=== PATIENT | male | born 1975 | race Caucasian/White ===

== ENCOUNTER 2019-09-11 16:53 | Emergency (ER) | payer MEDICARE, MEDICAID, SELFPAY ==
--- NOTE | ~2019-09-11 | XR_ITS ---
EXAMINATION: XR chest 2V EXAM DATE: 09/11/2019 18:19 INDICATION: Cough for 8 days. COPD. TECHNIQUE: Frontal and lateral projections of the chest obtained and reviewed. Comparison is made to prior examination from 04/05/2006. FINDINGS: There is moderate amount of bilateral perihilar distribution reticulonodular airspace disea se without dense confluent consolidation. Probably acute infection, clinical correlation. There is mo derate hyperinflation with narrow cardiac silhouette. There is no pneumothorax suspected. There are n o pleural effusions. There are no osseous abnormalities identified. IMPRESSION: Moderate bilateral perihilar reticulonodular opacities, probably infection. Reviewed, dictated and finalized at location [facility] IMPRESSION: Moderate bilateral perihilar reticulonodular opacities, probably in fection.
[2019-09-11 17:34] VITALS: BP 125/68; PULSE 98; RESP 20; TEMP 36.6; O2SAT 93
--- NOTE | 2019-09-11 17:57 | ED.URI ---
HPI - URI/Sore Throat General Chief Complaint: Upper Respiratory Infection Stated Complaint: cough/chest congestion Time Seen by Provider: 09/11/19 17:58 Source: patient Mode of arrival: ambulatory Limitations: no limitations History of Present Illness HPI Narrative: Christian Bella is a 44-year-old with history of COPD GERD who comes to [facility] care with COPD exacerbation. Patient is coughing, continues to smoke, wheezing Related Data Home Medications Medication Instructions Recorded Confirmed famotidine 40 mg tablet 40 mg PO BID tablet 05/19/19 albuterol sulfate 2.5 mg INHALATION Q4-6H PRN 05/22/19 albuterol sulfate 90 mcg/actuation 1 puff INHALATION Q4H PRN 05/22/19 aerosol inhaler fluticasone 250 mcg-salmeterol 50 1 inhalation INHALATION BID 05/22/19 mcg/dose blistr powdr for inhalation fluticasone furoate 100 1 inhalation INHALATION Q24H 05/22/19 mcg-vilanterol 25 mcg/dose inhalation powder hyoscyamine sulfate 0.375 mg 0.375 mg PO Q12H 05/22/19 tablet,extended release,12 hr ibuprofen 600 mg tablet 600 mg PO TID 05/22/19 mometasone 50 mcg/actuation nasal 2 spray NASAL DAILY 05/22/19 spray montelukast 10 mg tablet 10 mg PO DAILY 05/22/19 omeprazole 40 mg capsule,delayed 40 mg PO DAILY 05/22/19 release trazodone 150 mg tablet 150 mg PO DAILY tablet 05/22/19 fluticasone furoate-vilanterol INHALATION 09/11/19 [Breo Ellipta] trazodone 09/11/19 Allergies Allergy/AdvReac Type Severity Reaction Status Date / Time pseudoephedrine AdvReac Severe HYPERACTIVI Verified 09/11/19 17:40 TY Review of Systems Review of Systems: Narrative: CONSTITUTIONAL: Denies fever, chills, sweats. EYES: Denies visual changes, redness, discharge. ENT: Denies rhinorrhea, congestion, sore throat, otalgia. CARDIOVASCULAR: Denies chest pain, palpitations, edema. RESPIRATORY: Has dyspnea, severe wheezing, deep cough GASTROINTESTINAL: Denies abdominal pain, nausea, vomiting, diarrhea. GENITOURINARY: Denies dysuria, hematuria, abnormal discharge SKIN: Denies rash or itching. NEUROLOGIC: Denies numbness, or focal weakness. PSYCHIATRIC: Denies anxiety or depression. [facility] Family History Family History Mother Family history of transient ischemic attacks Family history of lupus erythematosus Patient's mother is Sibling Asthma Father Patient's father is in good health Other Diabetes mellitus Family history of chronic obstructive pulmonary disease Family history of malignant neoplasm of breast in first degree relative Hypertension Malignant neoplasm of prostate Social History Social History Smoking status: Smoker, status unknown Alcohol intake: current Substance use type: marijuana Comments At time of signature, I agree with nursing past medical, surgical, social and family history. There is no relevant family history pertinent to the presenting complaint. Exam Narrative: Exam Narrative: My gENERAL: This is a well-nourished, well-developed patient, in moderate distress. HEAD: normocephalic, atraumatic. EYES: Sclera clear/white. Vision is grossly intact. EARS: External ears normal, Hearing grossly intact. NOSE: External nose normal with no obvious nasal discharge, nares without redness, no rhinorrhea. THROAT: Mucous membranes moist, posterior pharynx clear. NECK: Neck supple, non-tender CARDIOVASCULAR: Tachycardic rate and rhythm without murmurs, gallops, or rubs. RESPIRATORY: Greatly diminished to auscultation. Breath sounds equal bilaterally. wheezes in all osorio no rales, some rhonchi. GASTROINTESTINAL: Abdomen soft, non-tender, SKIN: warm, intact with no suspicious lesions or rash, good texture and turgor. NEURO: awake, alert, and oriented to person, place and time. There were no obvious focal neurologic abnormalities. Steady gait EXTREMITIES: No
--- NOTE | 2019-09-11 18:38 | PC.NURSE ---
Addendum entered by Christine Martin RN 09/22/19 10:12: 09/11/2019- Atrovent and Albuterol provided to patient. Medications were not able to scan. Original Note: Prednisone 60 mg given to patient--scanned medications and patient multiple times, but would not update in the system.
--- NOTE | 2019-09-11 19:14 | PC.NURSE ---
Pt reported that he felt slight improvement after the breathing treatment.
== END 2019-09-11 18:59 | disposition home or self-care (01) ==
PROVIDERS: Emergency Provider Nurse Practitioner
DX: J18.9 Pneumonia, unspecified organism (principal); J41.1 Mucopurulent chronic bronchitis; K21.9 Gastro-esophageal reflux disease without esophagitis; F17.200 Nicotine dependence, unspecified, uncomplicated
CPT/HCPCS: 71046; 99213; G0463

== ENCOUNTER 2020-12-31 08:38 | Outpatient (CLI) | payer MEDICARE, MEDICAID, SELFPAY ==
[2020-12-31 09:11] LABS: Alanine Aminotransferase 19 U/L (4-50); Albumin Level 4.3 g/dL (3.5-5.1); Alkaline Phosphatase 55 U/L (38-126); Anion Gap 5 mmol/L (8-16); Aspartate Amino Transferase 31 U/L (17-59); Bilirubin,Total 0.3 mg/dL (0.2-1.3); Blood Urea Nitrogen 8 mg/dL (9-20); Calcium 9.3 mg/dL (8.4-10.2); Carbon Dioxide 27 mmol/L (22-30); Chloride 110 mmol/L (98-107); Cholesterol 142 mg/dL (0-200); Estimated Glomerular Filt Rate > 60; Glucose 101 mg/dL (75-110); HDL Direct 44 mg/dL; Potassium 4.2 mmol/L (3.4-5.0); Sodium 142 mmol/L (137-145); Triglycerides 111 mg/dL (<150)
[2020-12-31 09:22] LABS: LDL Cholesterol Direct 67 mg/dL
== END 2020-12-31 08:39 | disposition home or self-care (01) ==
PROVIDERS: PCP Internal Medicine; Visit Provider Internal Medicine
DX: Z13.6 Encounter for screening for cardiovascular disorders (principal); Z79.899 Other long term (current) drug therapy; Z13.220 Encounter for screening for lipoid disorders
CPT/HCPCS: 36415; 80053; 80061

== ENCOUNTER 2022-03-02 13:35 | Emergency (ER) | payer MEDICARE, MEDICAID, SELFPAY ==
[2022-03-02 13:48] VITALS: RESP 28
[2022-03-02] MEDS: SODIUM CHLORIDE 0.9% IV 1,000 ML 999 ML IV CONT (13:50)
[2022-03-02 13:55] VITALS: BP 143/78; PULSE 94; RESP 20; O2SAT 100
--- NOTE | 2022-03-02 13:59 | ECG_ITS ---
Measurements Intervals [place] Rate: 57 P: 44 TN: 138 QRS: 50 QRSD: 95 T: 52 QT: 437 QTc: 428 Interpretive Statements SINUS RHYTHM WITH SINUS ARRHYTHMIA POSSIBLE SEPTAL MYOCARDIAL INFARCTION [40+ ms Q WAVE IN V1/V2], OF INDETERMINATE AGE NONSPECIFIC ST ABNORMALITY ABNORMAL ECG Electronically Signed On 03-03-2022 9:56:30 CDT by Davy Ricks M.D.
--- NOTE | 2022-03-02 14:01 | ED.WEAKNESS ---
HPI - Weakness General Chief complaint: Weakness Stated complaint: Shortness of Breath Time Seen by Provider: 03/02/22 13:38 Source: patient, family (Mom and Girlfriend), RN notes reviewed and old records reviewed Mode of arrival: ambulatory Limitations: no limitations History of Present Illness HPI Narrative: 46-year-old male presents to the [facility] with complaints of severe diaphoresis, shortness of breath, generalized weakness, blurry vision that started 20 minutes prior to arrival. Patient denies any drug use. Patient's mom states that he was sitting in the shade smoking a cigarette and drinking monsters. Patient reports 30 minutes prior to arrival he was feeling fine. Developed a sudden onset of shortness of breath, generalized weakness, diaphoretic and family rushed him to the [facility]. On arrival patient was unable to stand independently. Complaining of blurry vision. Patient is blind in his right eye. Patient extremely diaphoretic. Denies chest pain or abdominal pain Onset (ago): minute(s) (20) Related Data Allergies Allergy/AdvReac Type Severity Reaction Status Date / Time pseudoephedrine AdvReac Severe HYPERACTIVI Verified 10/16/21 13:10 TY Review of Systems Review of Systems: All systems reviewed & are unremarkable except as noted in HPI and below Constitutional: Constitutional: Reports as per HPI, Reports no additional constitutional complaints, Denies chills, Denies fever(s) and Reports weakness Eyes: Eyes: Reports no additional eye complaints ENT: Reports system reviewed and no additional complaints, except as documented Cardiovascular: Cardiovascular: Reports no additional cardiovascular complaints Respiratory: Respiratory: Reports no additional respiratory complaints Gastrointestinal: Gastrointestinal: Reports no additional gastrointestinal complaints Musculoskeletal: Musculoskeletal: Reports no additional musculoskeletal complaints Integumentary/Breasts: Skin/Breast: Reports system reviewed and no additional complaints, except as docu Neurologic: Reports system reviewed and no additional complaints, except as documented Psychiatric: Psychiatric: Reports no additional psychiatric complaints Allergic/Immunologic: Allergic/Immunologic: Reports no additional allergic/immunologic complaints [facility] Past Medical History Medical History (Updated 03/02/22 @ 20:38 by Lea Ferguson APRN) Anxiety Dominguez's esophagus with dysplasia Bilateral knee pain Bipolar disorder, unspecified Cannabis dependence, uncomplicated Gastroesophageal reflux disease History of traumatic brain injury Nicotine dependence, unspecified, uncomplicated Retinal detachment Screening for lipid disorders Vision changes Blind in right eye Family History Family History Mother Family history of transient ischemic attacks Family history of lupus erythematosus Patient's mother is Sibling Asthma Father Patient's father is in good health Other Diabetes mellitus Family history of chronic obstructive pulmonary disease Family history of malignant neoplasm of breast in first degree relative Hypertension Malignant neoplasm of prostate Social History Social History Smoking packs per day: 1 Smoking cigarettes per day: 20.0 Years smoked: 25 Smoking pack-years: 25.00 Smoking status: Current every day smoker Tobacco type: cigarettes Second hand tobacco smoke exposure: Yes Alcohol intake: current Alcohol use details: social Substance use: current Substance use type: marijuana Comments At the time of my signature, I reviewed and agree with the nursing past medical, surgical, social, and family history. There is no relevant family history pertinent to the patient complaint. Exam Const: General: alert, diaphoretic and ill appearing acutely and chronically Nutritional Appear
--- NOTE | 2022-03-02 14:20 | ECG_ITS ---
Measurements Intervals [place] Rate: 64 P: 47 NV: 136 QRS: 49 QRSD: 95 T: 57 QT: 411 QTc: 425 Interpretive Statements SINUS RHYTHM WITH SINUS ARRHYTHMIA NORMAL ECG Electronically Signed On 03-03-2022 9:55:57 CDT by Davy Ricks M.D.
[2022-03-09 12:01] LABS: Glucose Point of Care 79 mg/dl (65-105)
== END 2022-03-02 14:00 | disposition short-term general hospital (02) ==
PROVIDERS: Emergency Provider Nurse Practitioner
DX: R53.1 Weakness (principal); R61 Generalized hyperhidrosis; R94.31 Abnormal electrocardiogram [ECG] [EKG]; F17.210 Nicotine dependence, cigarettes, uncomplicated; K22.719 Barrett's esophagus with dysplasia, unspecified; K21.9 Gastro-esophageal reflux disease without esophagitis; Z87.820 Personal history of traumatic brain injury
CPT/HCPCS: 82948; 93005; 99215; G0463; J7030

== ENCOUNTER 2022-06-15 01:26 | Day surgery (SDC) | payer MEDICARE, MEDICAID, SELFPAY ==
[2022-06-14 10:59] VITALS: BMI 22.4
[2022-06-15 12:45] VITALS: BP 118/88; PULSE 64; RESP 16; TEMP 36.3; O2SAT 100; BMI 21.6
[2022-06-15] MEDS: LACTATED RINGERS 1,000 ML 150 ML IV CONT (13:04)
--- NOTE | 2022-06-15 13:15 | PM.HPGS ---
History of Present Illness History of Present Illness Consent: Risks, benefits, and alternatives have been discussed and questions answered. Patient agrees to proceed with procedure. Chief complaint: barretts esophagus Narrative: Christian Bella is a 46 year old male Presents for EGD. Patient apparently has a history of acid reflux disease. EGD 1 and half years ago revealed that he had Dominguez's esophagus. Apparently for this reason he was referred back for screening endoscopy. Patient does report occasional heartburn. He does take omeprazole 40mg p.o. daily. Patient denies any bleeding. He denies any weight loss or dysphagia. Patient's past history is significant for colon polyps. Most recent colonoscopy the same time of EGD 1-1/2 years ago. Additionally patient has been treated for bipolar illness. Review of Systems Review of Systems: Review of systems noncontributory. [facility] Past Medical History Medical History Anxiety Dominguez's esophagus with dysplasia Bilateral knee pain Bipolar disorder, unspecified Cannabis dependence, uncomplicated Gastroesophageal reflux disease History of traumatic brain injury Nicotine dependence, unspecified, uncomplicated Retinal detachment Screening for lipid disorders Vision changes Blind in right eye Family History Family History Mother Family history of transient ischemic attacks Family history of lupus erythematosus Patient's mother is Sibling Asthma Father Patient's father is in good health Other Diabetes mellitus Family history of chronic obstructive pulmonary disease Family history of malignant neoplasm of breast in first degree relative Hypertension Malignant neoplasm of prostate Social History Social History (Updated 06/12/22 @ 10:11 by Diandra Brown MA) Smoking packs per day: 1 Smoking cigarettes per day: 20.0 Years smoked: 20 Smoking pack-years: 20.00 Smoking status: Current every day smoker Tobacco type: cigarettes Second hand tobacco smoke exposure: Yes Alcohol intake: current Drinks per week: 10 Alcohol use details: social Substance use: current Substance use type: marijuana Other substance usage details: daily Lack of Transportation: No Lack of Food: Sometimes True Current Housing: I Have Housing Concerned About Future Housing: No Difficulty Paying Gas/Electric Bills: YES Difficulty Paying for Meds: No Currently Unemployed: Decline to Answer Education: Grade School Difficulty w/ Childcare or Family Care: No Living arrangements: with family Spiritual care concerns: No Meds Home Medications and Allergies Home Medications Medication Instructions Recorded Confirmed Type albuterol sulfate 2.5 mg/3 mL 2.5 mg (3 mL) inhalation Q4H #180 03/29/20 06/14/22 Rx (0.083 %) solution for nebulization mL albuterol sulfate 90 mcg/actuation 1 inh inhalation Q6H PRN shortness 10/16/21 06/14/22 Rx aerosol inhaler (Ventolin HFA) of breath or wheezing #8.5 grams fluticasone propionate 50 2 spray intranasal DAILY #18.2 mL 10/16/21 06/14/22 Rx mcg/actuation nasal spray,suspension (Flonase Allergy Relief) montelukast 10 mg tablet 10 mg PO DAILY #30 tabs 10/16/21 06/14/22 Rx (Singulair) omeprazole 40 mg capsule,delayed 40 mg PO DAILY #30 caps 10/16/21 06/14/22 Rx release triamcinolone acetonide 0.1 % 1 applic topical BID #453.6 grams 10/16/21 06/14/22 Rx topical cream fluticasone furoate 100 1 inh inhalation Q24H #60 ea 11/06/21 06/14/22 Rx mcg-vilanterol 25 mcg/dose inhalation powder (Breo Ellipta) ibuprofen 600 mg tablet See Rx Instructions .Route 11/17/21 06/14/22 Rx .COMPLEX #90 ea gabapentin 300 mg capsule 600 mg PO DAILY #60 caps 03/19/22 06/14/22 Rx alprazolam 0.5 mg tablet 0.5 mg PO BID PRN anxiety #30 tabs 03/26/22 06/14/22 Rx quetiapine
[2022-06-15 13:39] VITALS: BP 119/71; PULSE 70; RESP 16; O2SAT 99
[2022-06-15 13:49] VITALS: BP 115/84; PULSE 69; RESP 18; O2SAT 96
[2022-06-15 13:59] VITALS: BP 119/87; PULSE 60; RESP 18; O2SAT 97
== END 2022-06-15 14:07 | disposition home or self-care (01) ==
PROVIDERS: PCP Internal Medicine; Visit Provider Internal Medicine Gastroenterology
PROC: 0DJ08ZZ Inspection of Upper Intestinal Tract, Via Natural or Artificial Opening Endoscopic (ICD-10-PCS; CPT 43235; principal; 2022-06-15 13:45)
DX: K22.70 Barrett's esophagus without dysplasia (principal); K21.9 Gastro-esophageal reflux disease without esophagitis; Z86.010 Personal history of colon polyps; F31.9 Bipolar disorder, unspecified; F17.210 Nicotine dependence, cigarettes, uncomplicated
CPT/HCPCS: 43239; 88305; J2704; J7120

== ENCOUNTER 2022-07-18 10:00 | Emergency (ER) | payer MEDICARE, MEDICAID, SELFPAY ==
[2022-07-18 10:15] VITALS: BP 112/74; PULSE 62; RESP 16; TEMP 37; O2SAT 100
--- NOTE | 2022-07-18 10:29 | ED.WOUNDLAC ---
HPI - Wound/Laceration General Stated Complaint: Lacation To Left Foot Time Seen by Provider: 07/18/22 10:20 Source: patient Mode of arrival: ambulatory Limitations: no limitations History of Present Illness HPI narrative: Christian is a 46-year-old male patient presenting to the clinic today with complaints a laceration to the bottom of his left foot. He reports that he caught his left foot on the bed frame. This caused a skin avulsion and laceration to the lateral arch of his foot. Bleeding controlled and tetanus is not up-to-date. Related Data Home Medications Medication Instructions Recorded Confirmed quetiapine 300 mg tablet mg 07/18/22 Allergies Allergy/AdvReac Type Severity Reaction Status Date / Time pseudoephedrine AdvReac Severe HYPERACTIVI Verified 07/18/22 10:25 TY Review of Systems Review of Systems: Pertinent positives per HPI. Patient denies any fever, chills, rash, headache, visual changes, dizziness, cough, runny nose, sore throat, shortness of breath, chest pain, palpitations, nausea, vomiting, diarrhea, constipation, abdominal pain, or any urinary issues. [facility] Past Medical History Medical History Anxiety Dominguez's esophagus with dysplasia Bilateral knee pain Bipolar disorder, unspecified Cannabis dependence, uncomplicated Gastroesophageal reflux disease History of traumatic brain injury Nicotine dependence, unspecified, uncomplicated Retinal detachment Screening for lipid disorders Vision changes Blind in right eye Family History Family History Mother Family history of transient ischemic attacks Family history of lupus erythematosus Patient's mother is Sibling Asthma Father Patient's father is in good health Other Diabetes mellitus Family history of chronic obstructive pulmonary disease Family history of malignant neoplasm of breast in first degree relative Hypertension Malignant neoplasm of prostate Social History Social History Smoking packs per day: 1 Smoking cigarettes per day: 20.0 Years smoked: 20 Smoking pack-years: 20.00 Smoking status: Current every day smoker Tobacco type: cigarettes Second hand tobacco smoke exposure: Yes Alcohol intake: current Drinks per week: 10 Alcohol use details: social Substance use: current Substance use type: marijuana Other substance usage details: daily Lack of Transportation: No Lack of Food: Sometimes True Current Housing: I Have Housing Concerned About Future Housing: No Difficulty Paying Gas/Electric Bills: YES Difficulty Paying for Meds: No Currently Unemployed: Decline to Answer Education: Grade School Difficulty w/ Childcare or Family Care: No Spiritual care concerns: No Comments At the time of my signature, I reviewed and agree with the nursing past medical, surgical, social, and family history. There is no relevant family history pertinent to the patient complaint. Exam Narrative: General: Well-developed, well nourished, in no apparent distress Head: Normocephalic, atraumatic. Cardio: Regular rate and rhythm, s1 and s2 normal, no murmur appreciated. Resp: Clear to auscultation bilaterally, no rhonchi, rales, wheezing or rubs. Integumentary: [place], warm, and dry, full avulsion of skin with superficial laceration measuring 0.5 cm by 3 cm. Wound cleansed with primiderm in the clinic today however there is nothing repairable Course Course Emergency Course: Portions of this record may have been created with voice recognition software. Level of Care: [facility] Visit Vital Signs Vital signs: Vital Signs Temperature 37.0 C 07/18/22 10:15 Pulse Rate 62 07/18/22 10:15 Respiratory Rate 16 07/18/22 10:15 Blood Pressure 112/74 07/18/22 10:15 Pulse Oximet
[2022-07-18] MEDS: TETANUS,DIPHTHERIA,AC PERTUSSIS ADULT (0.5 ML) BOOSTRIX IM (10:37)
== END 2022-07-18 11:00 | disposition home or self-care (01) ==
PROVIDERS: Emergency Provider Nurse Practitioner Family; PCP Internal Medicine
DX: S91.312A Laceration without foreign body, left foot, initial encounter (principal); W22.03XA Walked into furniture, initial encounter; Z23 Encounter for immunization; F17.210 Nicotine dependence, cigarettes, uncomplicated; F12.90 Cannabis use, unspecified, uncomplicated; K22.70 Barrett's esophagus without dysplasia; K21.9 Gastro-esophageal reflux disease without esophagitis; Z87.820 Personal history of traumatic brain injury; F31.9 Bipolar disorder, unspecified; F41.9 Anxiety disorder, unspecified
CPT/HCPCS: 90471; 90715; 99213; G0463

== ENCOUNTER 2022-12-17 09:25 | Emergency (ER) | payer MEDICARE, MEDICAID, SELFPAY ==
[2022-12-17 09:30] VITALS: BP 140/99; PULSE 76; RESP 20; TEMP 36.5; O2SAT 100
--- NOTE | 2022-12-17 09:50 | ED.EYEPROB ---
HPI - Eye Problem General Chief complaint: Eye Problems Stated complaint: Right Eye Problem History of Present Illness HPI Narrative: Patient presents with chronic problems to his right eye. 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 Patient states he has had this bump under his right eyelid for the past month. Patient reports a history of retinal detachment in his right eye and has total vision loss. Patient states Related Data Home Medications Medication Instructions Recorded Confirmed albuterol sulfate 2.5 mg/3 mL 2.5 mg inhalation Q4H PRN 08/30/22 12/17/22 (0.083 %) solution for nebulization Shortness Of Breath Or Wheezing Allergies Allergy/AdvReac Type Severity Reaction Status Date / Time pseudoephedrine AdvReac Severe HYPERACTIVI Verified 12/17/22 09:46 TY Review of Systems Review of Systems: CONSTITUTIONAL: Denies fever, chills, or sweats. EYES: Denies visual changes, redness, or discharge. ENT: Denies rhinorrhea, congestion, sore throat, or otalgia. CARDIOVASCULAR: Denies chest pain, palpitations, or edema. RESPIRATORY: Denies cough or dyspnea. GASTROINTESTINAL: Denies abdominal pain, nausea, vomiting, or diarrhea. GENITOURINARY: Denies dysuria or hematuria. SKIN: Denies rash or itching. MUSCULOSKELETAL: Denies back pain, joint pain, or myalgia. NEUROLOGIC: Denies headache, numbness, or weakness. PSYCHIATRIC: Denies anxiety or depression. [facility] Past Medical History Medical History Anxiety Dominguez's esophagus with dysplasia Bilateral knee pain Bipolar disorder, unspecified Cannabis dependence, uncomplicated Gastroesophageal reflux disease History of traumatic brain injury Nicotine dependence, unspecified, uncomplicated Retinal detachment Screening for lipid disorders Vision changes Blind in right eye Family History Family History Mother Family history of transient ischemic attacks Family history of lupus erythematosus Patient's mother is Sibling Asthma Father Patient's father is in good health Other Diabetes mellitus Family history of chronic obstructive pulmonary disease Family history of malignant neoplasm of breast in first degree relative Hypertension Malignant neoplasm of prostate Social History Social History Smoking packs per day: 1 Smoking cigarettes per day: 20.0 Years smoked: 20 Smoking pack-years: 20.00 Smoking status: Current every day smoker Tobacco type: cigarettes Second hand tobacco smoke exposure: Yes Alcohol intake: current Drinks per week: 10 Alcohol use details: social Substance use: current Substance use type: marijuana Other substance usage details: daily Lack of Transportation: No Lack of Food: Sometimes True Current Housing: I Have Housing Concerned About Future Housing: No Difficulty Paying Gas/Electric Bills: YES Difficulty Paying for Meds: No Currently Unemployed: Decline to Answer Education: Grade School Difficulty w/ Childcare or Family Care: No Living arrangements: with family Spiritual care concerns: No Comments At time of signature, agree with nursing past medical, surgical, social and family history. There is no relevant family history pertinent to the presenting complaint Exam Narrative: GENERAL: Well-appearing, well-nourished, and in no acute distress. HEAD: Normocephalic, atraumatic. EYES: PERRLA and EOMI. ENT: Nares clear, no rhinorrhea or epistaxis. Mucous membranes moist. NECK: Supple. CHEST: Clear to auscultation. No respiratory distress. HEART: Regular rate and rhythm. No murmur heard. Normal peripheral pulses. ABDOMEN: Soft, nontender, nondistended, normal active bowel sounds. EXTREMITIES: Normal range of motion. No edema. SKIN: Warm, dry, no rash. NEURO: No focal deficits.
== END 2022-12-17 10:35 | disposition left against medical advice (07) ==
PROVIDERS: Emergency Provider Nurse Practitioner Family; PCP Family Medicine
DX: H57.9 Unspecified disorder of eye and adnexa (principal); H18.9 Unspecified disorder of cornea; F17.210 Nicotine dependence, cigarettes, uncomplicated; F12.90 Cannabis use, unspecified, uncomplicated; K22.70 Barrett's esophagus without dysplasia; K21.9 Gastro-esophageal reflux disease without esophagitis; H54.40 Blindness, one eye, unspecified eye
CPT/HCPCS: 99212; G0463

== ENCOUNTER 2024-11-04 12:07 | Outpatient (CLI) | payer MEDICARE, MEDICAID, SELFPAY ==
--- OUTSIDE RECORDS SUMMARY | 2024-11-04 13:18 | XMS_ITS | Encounter Summary ---
Author Organization [facility] Address [address] [place] [place] [address] Phone Care Team Providers Care Animal Hospital Clerk Name Role Phone Nael, Serafin Leticia PEÑA Primary Care Provider [phone] Encounter Details Date Type Department Care Team (Latest Contact Info) Description 10/31/2023 Transcribe Orders [facility] [address] [place] [address] Ralph Chávez MD [address] [place] [id number] Encounter for screening for malignant neoplasm of prostate (Primary Dx); Depression, unspecified depression type; Mild intermittent asthma without complication; Personal history of traumatic brain injury; Nicotine dependence, uncomplicated, unspecified nicotine product type; Irritable bowel syndrome with diarrhea; Right hip pain; Other chronic pain Social History Tobacco Use Types Packs/Day Years Used Date Smoking Tobacco: Every Day Cigarettes 1 40 Smokeless Tobacco: Never Alcohol Use Standard Drinks/Week Comments Yes 0 (1 standard drink = 0.6 oz pur e alcohol) Beer- drinks everyother week Sexually Active Control Partners Comments Yes Sex and Gender Information Value Date Recorded Sex Assigned at Not on file Legal Sex Male 11:58 PM CDT Gender Identity Not on file Sexual Orientation Not on file documented as of this encounter Plan of Treatment Not on file documented as of this encounter Results * LIPID PANEL (11/11/2023 12:30 PM CDT) CHOLESTEROL 126 <200 mg/dL 11/11/2023 1:24 PM CDT [facility] TRIGLYCERIDES 52 <150 mg/dL 11/11/2023 1:24 PM CDT [facility] HDL CHOLESTEROL 57 >40 mg/dL 1:24 PM CDT [facility] LDL 59 <130 mg/dL 11/11/2023 1:24 PM CDT [facility] VLDL 10 10 - 50 mg/dL 11/11/2023 1:24 PM CDT [facility] CHOL/HDL RATIO 2.2 0.0 - 4.4 11/11/2023 1:24 PM CDT [facility] NON-HDL CHOLESTEROL 69 <130 mg/dL 11/11/2023 1:24 PM CDT [facility] IS THE PATIENT REQUIRED TO BE FASTING? Yes 11/11/2023 1:24 PM CDT [facility] HAS THE PATIENT BEEN FASTING? Yes 11/11/2023 1:24 PM CDT [facility] Blood VENOUS STRUCTURE / Unknown Venipuncture / Unknown 11/11/2023 12:30 PM CDT 11/11/2023 12:56 PM CDT us Ralph Chávez MD CHEMISTRY ORDERABLES Final Resu lt [facility] [address] [place] [address] * PSA SCREEN (11/11/2023 12:30 PM CDT) PSA SCREEN, TOTAL 0.46 <4.00 ng/mL 11/11/2023 1:42 PM CDT [facility] Blood VENOUS STRUCTURE / Unknown Venipuncture / Unknown 11/11/2023 12:30 PM CDT 11/11/2023 12:57 PM CDT Narrative [facility] - 11/11/2023 1:42 PM CDT The ALINITY Total PSA assay is a Chemiluminescent Microparticle Immunoassay (CMIA) for the quantitative determination of total PSA (both free PSA and PSA complexed to [id number]) in human serum. Total PSA values obtained with different assay methods, including Lewis PSA assays, cannot be used interchangeably. us Ralph Chávez MD CHEMISTRY ORDERABLES Final Resu lt [facility] [address] [place] [address] * (ABNORMAL) CMP (COMPREHENSIVE METABOLIC PANEL) (11/11/2023 12:30 PM CDT) SODIUM 136 136 - 145 mmol/L 11/11/2023 1:24 PM CDT [facility] POTASSIUM 3.8 3.5 - 5.1 mmol/L 11/11/2023 1:24 PM CDT [facility] CHLORIDE 102 98 - 107 mmol/L 11/11/2023 1:24 PM CDT [facility] CO2, VENOUS 26 22 - 30 mmol/L 11/11/2023 1:24 PM CDT [facility] ANION GAP 11.8 <18.0 mmol/L 11/11/2023 1:24 PM CDT [facility] GLUCOSE 128(H) 70 - 99 mg/dL 11/11/2023 1:24 PM CDT [facility] BUN 7(L) 8 - 26 mg/dL 11/11/2023 1:24 PM CDT [facility] CREATININE, BLOOD 0.98 0.70 - 1.30 mg/dL 11/11/2023 1:24 PM CDT [facility] BUN/CREATININE RATIO 7(L) 12 - 20 ratio 11/11/2023 1:24 PM CDT [facility] TOTAL PROTEIN 7.2 6.3 - 8.2 g/dL 11/11/2023 1:24 PM CDT [facility] ALBUMIN 4.3 3.5 - 5.0 g/dL 11/11/2023 1:24 PM CDT [facility] A/G RATIO 1.5 1.0 - 2.2 11/11/2023 1:24 PM CDT [facility] CALCIUM 9.6 8.7 - 10.5 mg/dL 11/11/2023 1:24 PM CDT [facility] T BILI 0.4 0.2 - 1.2 mg/dL 11/11/2023 1:24 PM CDT [facility] SGOT (AST) 23 5 - 34 U/L 11/11/2023 1:24 PM CDT [facility] SGPT (ALT) 21 0 - 55 U/L 11/11/2023 1:24 PM CDT [facility] ALKALINE PHOSPHATASE 63 40 - 150 U/L 11/11/2023 1:24 PM CDT [facility] IS THE PATIENT REQUIRED TO BE FASTING? No 11/11/2023 1:24 PM CDT [facility] GFR, ESTIMATED >60 >=60 11/11/2023 1:24 PM CDT [facility] Comment: Creatinine Clearance is the preferred criteria for selecting drug dose adjustments in renally impaired patients. The GFR is provided as additional pertinent clinical information. GFR is reported in mL/min/1.73 sq m. Calculation based on the Chronic Kidney Disease Epidemiology Collaboration (CKD- EPI) equation refit without adjustment for race. GFR, EST. >60 >=60 024 1:24 PM CDT [facility] GFR, EST. NONAFRICAN >60 >=60 11/11/2023 1:24 PM CDT [facility] Blood VENOUS STRUCTURE / Unknown Venipuncture / Unknown 11/11/2023 12:30 PM CDT 11/11/2023 12:56 PM CDT us Ralph Chávez MD CHEMISTRY ORDERABLES Final Resu lt [facility] [address] [place] [address] * (ABNORMAL) COMPLETE BLOOD COUNT (CBC) WITHOUT DIFF (11/11/2023 12:30 PM CDT) WBC 4.59 4.00 - 12.00 10(3)/mcL 11/11/2023 1:03 PM CDT [facility] RBC 4.14(L) 4.40 - 5.80 10(6)/mcL 11/11/2023 1:03 PM CDT [facility] HEMOGLOBIN (HGB) 14.5 13.0 - 16.5 g/dL 11/11/2023 1:03 PM CDT [facility] HEMATOCRIT (HCT) 39.9 38.0 - 50.0 % 11/11/2023 1:03 PM CDT [facility] MCV 96.4(H) 82.0 - 96.0 fL 11/11/2023 1:03 PM CDT [facility] MCH 35.0(H) 26.0 - 32.0 pg 11/11/2023 1:03 PM CDT [facility] MCHC 36.3(H) 31.0 - 36.0 g/dL 11/11/2023 1:03 PM CDT [facility] PLATELET COUNT 321 140 - 440 10(3)/mcL 11/11/2023 1:03 PM CDT [facility] RDW 12.2 11.8 - 15.5 % 11/11/2023 1:03 PM CDT [facility] MPV 8.6 8.0 - 12.6 fL 11/11/2023 1:03 PM CDT [facility] Blood VENOUS STRUCTURE / Unknown Venipuncture / Unknown 11/11/2023 12:30 PM CDT 11/11/2023 12:57 PM CDT us Ralph Chávez MD HEMATOLOGY ORDERABLES Final Res ult [facility] [address] [place] [address] documented in this encounter Visit Diagnoses Diagnosis Encounter for screening for malignant neoplasm of prostate- Primary Special screening for malignant neoplasm of prostate Depression, unspecified depression type Mild intermittent asthma without complication Unspecified asthma Personal history of traumatic brain injury Nicotine dependence, uncomplicated, unspecified nicotine product type Irritable bowel syndrome with diarrhea Irritable bowel syndrome Right hip pain Pain in joint, pelvic region and thigh Other chronic pain documented in this encounter Care Teams Animal Hospital Clerk Relationship Specialty Start Date End Date Serafin Nayak DO [address] [address] PCP - General Internal Medicine 04/13/20 documented as of this encounter
--- OUTSIDE RECORDS SUMMARY | 2024-11-04 13:19 | XMS_ITS | Encounter Summary ---
Author Organization [facility] Address [address] [facility] [place] [address] Care Team Providers Care Travel Ticketing Reviewer Name Role Phone Serafin Nayak Leticia PEÑA Primary Care Provider [phone] Lon Huertas Unavailable Encounter Details Date Type Department Care Team (Late st Contact Info) Description 05/10/2023 Telephone [facility] - Ophthalmology [address] [place] [phone] Tania Webb MD [address] [place] [address] [place] [address] Social History Tobacco Use Types Packs/Day Years Used Date Smoking Tobacco: Every Day Cigarettes 2.5 30 Smokeless Tobacco: Never Alcohol Use Standard Drinks/Week Comments Yes 0 (1 standard drink = 0.6 oz pur e alcohol) twice monthly Sex and Gender Information Value Date Recorded Sex Assigned at Not on file Legal Sex Male 5:33 AM LINSEED 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 Answer Date of Assessment Author No 02/18/2020 2:40 PM Sruthi Junior RN * Is person blind or have serious difficulty seeing? Answer Date of Assessment Author No 02/18/2020 2:40 PM Sruthi Junior RN * Does person have serious difficulty walking/climbing stairs? Answer Date of Assessment Author No 02/18/2020 2:40 PM Sruthi Junior RN * Does person have difficulty dressing/bathing? Answer Date of Assessment Author No 02/18/2020 2:40 PM CDT Sruthi Bauman RN * Does person have difficulty doing errands alone? Answer Date of Assessment Author No 02/18/2020 2:40 PM CDT Sruthi Bauman RN documented as of this encounter Mental Status * Does person have difficulty concentrating/remembering/making decisions? Answer Entry Date Author No 02/18/2020 2:40 PM CDT Sruthi Bauman RN documented in this encounter Miscellaneous Notes * Telephone Encounter - Yoandy Davis - 05/10/2023 1:43 PM CDT Patients mom called in and stated that she need a for sure surgery date. She says that she can not go off of maybes, he would like a call back with a for sure date as soon as possible [phone] documented in this encounter Plan of Treatment Not on file documented as of this encounter Visit Diagnoses Not on filedocumented in this encounter Care Teams Travel Ticketing Reviewer Relationship Specialty Start Date End Date Serafin Nayak DO [address] [place] [address] PCP - General 12/31/18 Lon Huertas [address] [address] 08/06/23 documented as of this encounter
--- OUTSIDE RECORDS SUMMARY | 2024-11-04 13:19 | XMS_ITS | Encounter Summary ---
Author Organization [facility] Address [address] [place] [address] Phone Care Team Providers Care Artificial Marble Worker Name Role Phone Jarred Nayakdie Leticia PEÑA Primary Care Provider [phone] Reason for Visit * Reason Onset Date Comments Results 10/03/2020 Results review Encounter Details Date Type Department Care Team (Late st Contact Info) Description 10/03/2020 Telephone [facility] - Gastroenterology - [address] [place] [address] Link Gunn DO [address] [address] Results (Results review) Social History Tobacco Use Types Packs/Day Years [...] on file Sexual Orientation Not on file COVID-19 Exposure Response Date Recorded In the last month, have you been in contact with someone who was confirmed or suspected to have Coronavirus / COVID-19? No / Unsure 09/27/2020 5:41 AM CDT documented as of this encounter Miscellaneous Notes * Telephone Encounter - Pearl Doan RN - 10/03/2020 2:44 PM CDT No cancer. ??Recheck colon 3-6 months with 2 day prep. ??Multiple polyps. VM left for pt. Recall placed. documented in this encounter Plan of Treatment Not on file documented as of this encounter Visit Diagnoses Not on filedocumented in this encounter Care Teams Artificial Marble Worker Relationship Specialty Start Date End Date Serafin Nayak DO [address] [address] PCP - General Internal Medicine 04/13/20 documented as of this encounter
--- OUTSIDE RECORDS SUMMARY | 2024-11-04 13:19 | XMS_ITS | Clinical Summary ---
Author Organization [facility] Address [address] [place] [address] Care Team Providers Care Tester Food Products Name Role Phone Serafin Nayak DO Primary Care Provider Lon Huertas Unavailable Source Comments [facility],non-owned Affiliates and Associated Physician Practices is amultiple site organization consisting of ambulatory clinics and hospital sitesin [place], [place], [place] and [place]. This disclosure is being madepursuant to the Care Everywhere program and may not contain all information available regarding this patient. Last updated 18.[facility] Allergies No known active allergies Medications * Be aware that medications may not be up to date on this document. Always verify current medications with the patient. VENTOLIN HFA 108 (90 Base) MCG/ACT inhaler 09/23/2019 Act addis ibuprofen (MOTRIN) 600 MG tablet 12/08/2019 Active triamcinolone acetonide (KENALOG) 0.025 % cream 01/19/2020 Active gabapentin (NEURONTIN) 300 MG capsule Take 1 (one) capsule by mouth at bedtime 01/18/2020 Active QUEtiapine (SEROQUEL) 300 MG tablet 11/17/2019 Active ALPRAZolam (XANAX) 0.5 MG tablet 03/29/2020 Active fluticasone propionate (FLONASE) 50 MCG/ACT nasal spray 03/29/2020 Active montelukast (SINGULAIR) 10 MG tablet 03/29/2020 Active omeprazole (PRILOSEC) 40 MG capsule 03/29/2020 Active Trelegy Ellipta 200-62.5-25 MCG/ACT inhaler 11/23/2022 Act addis naloxone HCl (Narcan) 4 MG/0.1ML nasal spray 02/21/2023 Active buPROPion XL 24hr (Wellbutrin-XL) 150 MG tablet 04/22/2023 Activ e erythromycin (Romycin) 5 MG/GM ophthalmic ointment Instill into right eye 4 times daily This is to be used once we take off the patch 3.5 g 2 06/14/2023 Active traZODone (Desyrel) 150 MG tablet 06/20/2023 Active HYDROcodone-jayne taminophen (Mulberry) 7.5-325 MG tablet 07/17/2023 Active Active Problems Problem Noted Date Diagnosed Date 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 Andi Riggs MD 01/22/2020 11:35 AM Glaucoma, secondary, right, severe stage 020 Overview (01/22/2020): Patient with previous lens induced glaucoma problems now presents with what appears to be secondary glaucoma for multiple retinal detachment surgeries and silicone oil. 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 Andi Riggs MD 01/22/2020 11:35 AM Family History Medical History Relation Name Comments Glaucoma Neg Hx Social History Tobacco Use Types Packs/Day Years Used Date Smoking Tobacco: Every Day Cigarettes 2.5 30 Smokeless Tobacco: Never Tobacco Cessation:Ready to Q uit: Not Asked; Counseling Given: Not Answered Alcohol Use Standard Drinks/Week Comments Yes 0 (1 standard drink = 0.6 oz pur e alcohol) twice monthly AUDIT-C Answer Date Recorded Q1: How often do you have a drink containing alc ohol? Monthly or less 06/14/2023 Q2: How many drinks containi ng alcohol do you have on a typical day when you are drinking? 10 or more 06/14/2023 Q3: How often do you have si x or more drinks on one occasion? 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 Gender Identity Not on file Sexual Orientation Not on file Last Filed Vital Signs Vital Sign Reading Time Taken Comments Blood Pressure 146/100 06/14/2023 4:15 PM MINT MACHINE OPERATOR Pulse 50 06/14/2023 4:15 PM MINT MACHINE OPERATOR Temperature 36.6 C (97.8 F) 06/14/2023 3:48 PM MINT MACHINE OPERATOR Respiratory Rate 19 06/14/2023 4:15 PM MINT MACHINE OPERATOR Oxygen Saturation 98% 06/14/2023 4:15 PM MINT MACHINE OPERATOR Inhaled Oxygen Concentration 21% 01/21/2019 1 :55 PM CDT Weight 76.6 kg (168 lb 12.8 oz) 023 10:30 AM MINT MACHINE OPERATOR Height 188 cm (6' 2 ) 06/14/2023 10:30 AM MINT MACHINE OPERATOR Body Mass Index 21.67 06/14/2023 10:30 AM MINT MACHINE OPERATOR Plan of Treatment Health Maintenance Due Date Last Done Comments COLOGUARD (AGES 45-75) - COL ON CA SCREENING 1973 COLON MONITORING 1973 COLONOSCOPY - COLON CA SCREENING 1973 CT COLONOGRAPHY - COLON CA SCREENING 1973 Colorectal Cancer Screening 1973 FIT - COLON CA SCREENING 1973 FLEX SIG - COLON CA SCREENING 1973 LIPID TESTING 1973 MEDICARE AWV 12 MONTHS 1973 HIV SCREENING 1988 DTAP/TDAP/TD VACCINES (1 - Tdap) 1992 HEPATITIS B VACCINE (1 of 3 - 19+ 3-dose series) 1992 PNEUMOCOCCAL VACCINE 50+ (1 of 2 - PCV) 1992 LUNG CANCER SCREENING 2023 ZOSTER VACCINE (1 of 2) 2023 COVID-19 VACCINE (1 - 2023-2 5 season) 2024 DEPRESSION SCREENING 07/08/2024 INFLUENZA VACCINE (Season Ended) 2025 HEPATITIS C SCREENING Completed 04/13/2020 HIB VACCINE Aged Out No longer eligi ble based on patient's age to complete this topic HPV VACCINE Aged Out No longer eligi ble based on patient's age to complete this topic MENINGOCOCCAL (Group B) VACC INE SHARED DECISION-MAKING Aged Out No longer eligibl e based on patient's age to complete this topic MENINGOCOCCAL GROUPS A/C/Y/W VACCINE Aged Out No longer eligible b ased on patient's age to complete this topic Medical Devices Implanted Type Area Court Bailiff Device Identifier Shelf Expiration Date Model / Serial / Lot Drain Glcm Thk.9mm Blnt Tpr [facility] Flxb - [id number] Implanted:Qty: 1 on 01/25/2020 by Andi Riggs MD at [facility] Right: Eye [employer] 08/13/2021 FP7 / [id number] / [id number] Graft Tissue Ttpl Ioptch Sclr .8x.5cm - [id number] Implanted:Qty: 1 on 01/25/2020 by Andi Riggs MD at [facility] Right: Eye [employer] 08/07/2024 [id number] / [id number] / Impl Sclr Algrf - [id number] Implanted:Qty: 1 on 06/14/2023 by Tania Webb MD at [facility] Right: Eye 02/24/2024 [id number] / [id number] / Sphr Eye 18mm 18mm Strl Pmma Twilight Hrd Implanted:Qty: 1 on 06/14/2023 by Tania Webb MD at [facility] Right: Eye [employer] 02/21/2026 [id number] / / [id number] Cnfrmr Opth Med Twilight Pmma Hl Ltwt Inert Implanted:Qty: 1 on 06/14/2023 by Tania Webb MD at [facility] Right: Eye [employer] 07/07/2024 [id number] / / [id number] Insurance MEDICARE MEDICAID - [facility] [place] MEDICAID - [place] [facility] [address] MEDICARE MEDICAID - OUT OF STATE Advance Directives * Full Code (Latest Code Status on File) Date Activated Date Inactivated Comments 01/13/2019 10:55 AM 01/13/2019 12:14 PM Care Teams Tester Food Products Relationship Specialty Start Date End Date Serafin Nayak DO [address] [place] [address] PCP - General 12/31/18 Lon Huertas [address] [address] 08/06/23
--- OUTSIDE RECORDS SUMMARY | 2024-11-04 13:19 | XMS_ITS | Clinical Summary ---
Author Organization [facility] Address [address], [address] [address] Phone Care Team Providers Care Anthropologist Name Role Phone Serafin Nayak DO Primary Care Provider [phone] Allergies No known active allergies Medications albuterol (Ventolin HFA) 108 (90 Base) MCG/ACT Aerosol Solution every 4 hours as needed. 8 Active ALPRAZolam (XANAX) 0.5 MG Tablet as needed. 0 Active dorzolamide-vinnie olol (COSOPT) 22.3-6.8 MG/ML Solution Place 1 Drop in affected eye(s). 0 Active fluticasone-lilly anterol (Breo Ellipta) 100-25 MCG/INH AEROSOL POWDER, BREATH ACTIVATED daily. 8 Active fluticasone (FLONASE) 50 MCG/ACT Suspension daily as needed. 0 Active gabapentin (NEURONTIN) 300 MG CapsuleIndicati ons:Neuropathic Pain daily. Indications: Neuropathic Pain 8 Active HYDROcodone-jayne taminophen (NORCO) 5-325 MG Tablet Take 1 Tablet by mouth every 6 hours as needed. 8 Active montelukast (SINGULAIR) 10 MG Tablet daily. 0 Active prednisoLONE acetate (PRED FORTE) 1 % Suspension 0 Active QUEtiapine Fumarate 300 MG Tablet nightly. 0 Active traZODone (DESYREL) 150 MG Tablet nightly. 0 Active omeprazole (PriLOSEC) 40 MG CAPSULE DELAYED RELEASE Take 1 Capsule by mouth daily. 90 Capsule 3 1 Active Active Problems No known active problems Family History Medical History Relation Name Comments Heart Attack Father Scoliosis Maternal Aunt Breast Cancer Maternal Grandfather Hypertension Maternal Grandfather Lupus Mother Breast Cancer Paternal Aunt Hypertension Paternal Grandmother Asthma Sister Relation Name Status Comments Father Maternal Aunt Maternal Grandfather Mother Paternal Aunt Paternal Grandmother Sister Social History Tobacco Use Types Packs/Day Years Used Date Smoking Tobacco: Every Day Cigarettes 1 40 Smokeless Tobacco: Never Tobacco Cessation:Ready to Q uit: Yes; Counseling Given: Yes Alcohol Use Standard Drinks/Week Comments Yes 0 [...] Sign Reading Time Taken Comments Blood Pressure 135/95 10/17/2020 1:15 PM CDT Pulse 52 10/17/2020 1:15 PM CDT Temperature 36 C (96.8 F) 10/17/2020 1:15 PM CDT Respiratory Rate 14 10/17/2020 1:15 PM CDT Oxygen Saturation 100% 10/17/2020 1:15 PM CDT Inhaled Oxygen Concentration - - Weight 73 kg (161 lb) 03/07/2021 9:00 AM CDT Height 185.4 cm (6' 1 ) 03/07/2021 9:00 AM CDT Body Mass Index 21.24 03/07/2021 9:00 AM CDT Plan of Treatment Health Maintenance Due Date Last Done Comments Hepatitis B Immunization (1 of 3 - 19+ 3-dose series) 1992 Pneumococcal Immunization (5 0+ years) (1 of 2 - PCV) 1992 Cologuard 2023 Immunochemical Fecal Occult Blood 2023 Zoster Immunization (1 of 2) 2023 Influenza Immunization (#1) 2024 SARS-COV-2 Immunization ( season) 2024 01/05/2021, 12/13/2020 Colonoscopy 09/27/2030 09/27/2020, 05/20/2013 Colorectal Cancer Screening 09/27/2030 Respiratory Syncytial Virus (RSV) Immunization (Adult) (1 - 1-dose 75+ series) 2048 09/27/2020, 05/20/2013 Hepatitis C Virus (HCV) Screening Completed 04/13/2020 DTaP/Tdap/Td Immunization Discontinued 07/18/2022 TdaP Immunization Completed 07/18/2022 Meningococcal Immunization (ACWY) Aged Out No longer eligible based on patient's age to complete this topic Rotavirus Immunization Aged Out No lo nger eligible based on patient's age to complete this topic Procedures Procedure Name Priority Date/Time Associated Diagnosis Comments HEPATITIS PANEL ACUTE (AHP) Routine 04/13/2020 10:48 AM CDT Anorexia 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 Comment: IGM Antibodies to HAV not detected. Does not exclude early acute or recovered HAV infection. HEP B CORE AB (IGM) NON DETECTED NON DETECTED [facility] [id number] A 04/13/2020 8:[address] [facility] Comment:IGM anti-HBC not det ected. Does not exclude the possibility of exposure to or infection with HBV. HEPATITIS B SURFACE ANTIGEN NON DETECTED NON DETECTED [facility] [id number] B 04/13/2020 8:[address] [facility] Comment:A nonreactive test r esult does not exclude the possibility of exposure to or infection with Hepatitis B virus. A nonreactive test result in individuals with prior exposure to hepatitis B may be due to antigen levels below the detection limit of this assay or lack of antigen reactivity to the antibodies in this assay. hepatitis C antibody 0.11 <1 S/CO [facility] [id number] B 04/13/2020 8:53 PM CDT [facility] Comment: Signal/Cutoff ratio < 0.79 is Nondetected Signal/Cutoff ratio 0.80-0.99 is Grayzone Signal/Cutoff ratio > 0.99 is Detected Supplemental assays are recommended if signal/cutoff ratio is >/=1.00. Signal/cutoff ratio result >/= 5.00 is 97% predictive of positivity for recombinant immunoblot assay (RIBA) and will be reported to the [place] Department of Public [facility] as required. Blood Venipuncture / Unknown 04/13/2020 10:48 AM CDT 04/13/2020 10:48 AM CDT us Denise Preciado PAC HEMATOLOGY ORDERABLES Fin al Result [facility] [address] [place] [address], * COLONOSCOPY (05/20/2013) Monik Diehl MD PROCEDURE/MINOR SURGICAL OR DERABLES Final Result from Last 3 Months or Most Recently Relevant to Health Maintenance Insurance MEDICAID [place] MEDICARE C CIGNA Care Teams Anthropologist Relationship Specialty Start Date End Date Serafin Nayak DO [address] [address] PCP - General Internal Medicine 04/13/20
--- OUTSIDE RECORDS SUMMARY | 2024-11-04 13:19 | XMS_ITS | Clinical Summary ---
Author Organization [facility] Address [address] [place] [address] Care Team Providers Care Steam Tank Operator Name Role Phone Ralph Chávez MD Primary Care Provider [phone] Allergies No known active allergies Medications VENTOLIN HFA 90 mcg/actuation inhaler 10/28/2017 Active HYDROcodone-jayne taminophen (NORCO) 5-325 mg per tabletIndicatio ns:Pain 01/03/2018 Active BREO ELLIPTA 100-25 mcg/dose diskus inhaler 10/28/2017 Acti ve mometasone (NASONEX) 50 mcg/actuation nasal spray 11/08/2017 Active mupirocin (BACTROBAN) 2 % ointment 12/30/2017 Active QUEtiapine XR (SEROquel XR) 300 mg 24 hr tablet 12/30/2017 Active traZODone (DESYREL) 150 mg tablet 12/03/2017 Active gabapentin (NEURONTIN) 300 mg capsule TAKE 1 CAPSULE BY MOUTH DIRECTED. 60 capsule 05/07/2018 Active gabapentin (NEURONTIN) 300 mg capsule TAKE 2 CAPSULES BY MOUTH AT NIGHT. 60 capsule 3 07/10/2019 Active famotidine (PEPCID) 40 mg tablet Take 1 tablet (40 mg total) by mouth nightly 90 tablet 3 07/22/2024 07/22/[address] (PROTONIX) 40 mg EC tablet Take 1 tablet (40 mg total) by mouth daily 90 tablet 3 07/22/2024 07/22/19 26 Active Active Problems Problem Noted Date Diagnosed Date Acute gastritis 08/04/2024 Personal history of colonic polyps 10/23/2023 Encounter for screening colonoscopy 10/23/2023 Dominguez's esophagus with dysplasia 10/23/2023 Cellulitis of left little finger 08/31/2020 Encounters Date Type Department Care Team Description 09/30/2024 1:30 PM CDT Lab [address] [address] from Last 3 Months Surgical History Surgery Date Site/Laterality Comments TONSILLECTOMY EAR SURGERY JOINT REPLACEMENT right knee reconstruction BIOPSY DEEP BONE 01/30/2018 N/A COLONOSCOPY 05/08/2013 - 06/06/2013 COLONOSCOPY 07/22/2024 Medical History Medical History Date Comments Asthma MRSA (methicillin resistant Staphylococcus aureu s) Anemia Arthritis Colitis IBS Depression Diarrhea Colon polyp Family History Medical History Relation Name Comments Lung disease Mother Lung disease Sister Relation Name Status Comments Mother Sister Social History Tobacco Use Types Packs/Day Years Used Date Smoking Tobacco: Every Day Cigarettes Smokeless Tobacco: Never Tobacco Cessation:Ready to Q uit: Not Asked; Counseling Given: Not Answered Alcohol Use Standard Drinks/Week Comments Yes 5 (1 standard drink = 0.6 oz pur e alcohol) AUDIT-C Answer Date Recorded Q1: How often do you have a drink containing alc ohol? 2-4 times a month 07/21/2024 Q2: How many drinks containi ng alcohol do you have on a typical day when you are drinking? 3 or 4 07/21/2024 Frequency of Binge Drinking Not on file 07/08 Personal Safety Answer Date Recorded Have you ever been in or are you currently in a harmful physical or emotional relationship or is someone making you feel afraid or unsafe? Denies 07/22/2024 Sex and Gender Information Value Date Recorded Sex Assigned at Not on file Legal Sex Male 12:00 PM [employer] Gender Identity Not on file Sexual Orientation Not on file Obstetrics History Last Filed Vital Signs Vital Sign Reading Time Taken Comments Blood Pressure 151/87 07/22/2024 12:13 PM [employer] Pulse 55 07/22/2024 12:13 PM [employer] Temperature 36.7 C (98 F) 07/22/2024 12:13 PM [employer] Respiratory Rate 18 07/22/2024 12:13 PM [employer] Oxygen Saturation 100% 07/22/2024 12:13 PM [employer] Inhaled Oxygen Concentration - - Weight 77.6 kg (171 lb) 07/22/2024 9:33 AM [employer] Height 188 cm (6' 2 ) 07/22/2024 9:33 AM [employer] Body Mass Index 21.96 07/22/2024 9:33 AM [employer] Plan of Treatment Upcoming Encounters Date Type Department Care Team (Latest Contact Info) Description 07/27/2025 11:00 AM [employer] Hospital Encounter [facility] [address] [place] [address] Monik Diehl MD [address] [facility] [address] [facility] [address] [place] [id number] 07/27/2025 11:00 AM [employer] - 07/27/2025 11:35 AM [employer] Surgery [facility] [address] [place] [address] Monik Diehl MD [address] [facility] [address] [facility] [address] [place] [id number] ESOPHAGOGASTRODUODENOSCOPY Scheduled Procedures Name Priority Associated Diagnoses Date/Ti me ESOPHAGOGASTRODUODENOSCOPY Dominguez's esophagus with dysplasia Acute gastritis, presence of bleeding unspecified, unspecified gastritis type 07/27/2025 11:00 AM [employer] Health Maintenance Due Date Last Done Comments Depression Screening 1975 Hepatitis C Screening 1973 Prostate Cancer Screening-PSA 1973 DTaP/Tdap/Td Vaccine (1 - Tdap) 1984 Hepatitis B Screening 1991 Regular Well Visit/Exam 18-64 1991 Pneumococcal vaccine <65 (1 of 2 - PCV) 1992 Zoster Vaccine (1 of 2) 2023 Covid-19 Vaccine (3 - season) 03/08/202407/2020, 12/13/2020 Influenza Vaccine (#1) 2024 Colon Cancer Screening-Colonoscopy 07/22/20342024, 05/20/2013 Procedures Procedure Name Priority Date/Time Associated Diagnosis Comments EGFR Routine 09/30/2024 1:37 PM CDT CBC WITHOUT DIFFERENTIAL Routine 09/30/2024 1:37 PM CDT TSH Routine 09/30/2024 1:37 PM CDT HEMOGLOBIN A1C Routine 09/30/2024 1:37 PM CDT COMPREHENSIVE METABOLIC PANEL Routine 09/30/2024 1:37 PM CDT COLONOSCOPY 07/22/2024 9:23 AM [employer] from Last 3 Months or Most Recently Relevant to Health Maintenance Results * eGFR (09/30/2024 1:37 PM CDT) eGFR 81 >=60 mL/min/1. 73 m2 Comment: Interpretive Data Reference Interval Normal >/= 90 mL/min/1.73m2 Mildly decreased* 60 - 89 mL/min/1.73m2 Mildly to moderately decreased 45 - 59 mL/min/1.73m2 Moderately to severely decreased 30 - 44 mL/min/1.73m2 Severely decreased 15 - 29 mL/min/1.73m2 Kidney Failure < 15 mL/min/1.73m2 *Relative to young adult level Estimated glomerular filtration rate is determined by the 2020 CKD-EPI equation recommended by the National Kidney Foundation (A Unifying Approach to GFR Estimation: Recommendations of the NKF-ASK Task Force on Reassessing the Inclusion of Race in Diagnosing Kidney Disease, JASN 2020). The CKD-EPI equation should not be used for patients with unstable renal function and has not been validated in children and those over 70. Current interpretive data was last reviewed 2021. Blood 09/30/2024 1:37 PM CDT 09/30/2024 2:02 PM CDT us Ralph Chávez MD LAB BLOOD ORDERABLES Billie sena Result [facility] ([place]) [address] [facility] Department [place] [address] * (ABNORMAL) CBC without differential (09/30/2024 1:37 PM CDT) WBC 8.1 3.8 - 9.9 K/cumm Hgb 14.4 13.0 - 17.5 g/dL [facility] ([place]) Hct 42.4 38.9 - 50.3 % [facility] ([place]) Plt 324 150 - 400 K/cumm [facility] ([place]) MPV 8.4(L) 9.1 - 12.3 fL [facility] ([place]) RBC 4.19(L) 4.30 - 5.80 M/cumm [facility] ([place]) MCV 101.2(H) 81.3 - 96.4 fL [facility] ([place]) MCH 34.4(H) 27.1 - 33.3 pg [facility] ([place]) MCHC 34.0 32.3 - 35.7 g/dL [facility] ([place]) RDW CV 13.1 11.1 - 14.9 % [facility] ([place]) RDW SD 48.8(H) 35.7 - 48.1 fL [facility] ([place]) NRBC abs 0.00 0.00 - 0.01 K/cumm [facility] ([place]) Blood 09/30/2024 1:37 PM CDT 09/30/2024 2:02 PM CDT us Ralph Chávez MD LAB BLOOD ORDERABLES Billie l Result Performing Organization Address City/[facility]/ZIP Co de Phone Number [facility] ([place]) [address] [facility] [place] [address] * TSH (09/30/2024 1:37 PM CDT) Thyroid Stimulating Hormone 0.87 0.30 - 4.20 mcIUnit/mL Blood 09/30/2024 1:37 PM CDT 09/30/2024 2:02 PM CDT us Ralph Chávez MD LAB BLOOD ORDERABLES Billie l Result [facility] ([place]) [facility] [place] [address] * Hemoglobin A1c (09/30/2024 1:37 PM CDT) Hgb A1C 5.1 4.0 - 5.6 % Estimated Average Glucose 100 mg/dL [facility] ([place]) Comment: The ADA recommends reporting an estimated Average Glucose (eAG) with all Hemoglobin A1c results using the equation derived from a study of 507 normal and diabetic adults. Minority populations were underrepresented and children were not included. (Diabetes Care 31:3043-5422, 2008). The eAG is not equivalent to a fasting glucose. Blood 09/30/2024 1:37 PM CDT 09/30/2024 2:02 PM CDT us Ralph Chávez MD LAB BLOOD ORDERABLES Billie sena Result [facility] ([place]) [facility] Department [place] [address] * Comprehensive metabolic panel (09/30/2024 1:37 PM CDT) Sodium 138 135 - 145 mmol/L Potassium, pl 4.2 3.3 - 4.9 mmol/L [facility] ([place]) Chloride 102 97 - 110 mmol/L [facility] ([place]) CO2 25 22 - 32 mmol/L [facility] ([place]) Anion gap 11 2 - 15 mmol/L [facility] ([place]) BUN 13 6 - 25 mg/dL [facility] ([place]) Creatinine 1.10 0.80 - 1.30 mg/dL [facility] ([place]) Glucose 81 70 - 199 mg/dL [facility] ([place]) Comment: Interpretive Data Fasting glucose >/= 126 mg/dl is diagnostic for diabetes. Fasting is defined as no caloric intake for at least 8 hours. Fasting glucose between 100 mg/dl to 125 mg/dl is diagnostic of prediabetes. In a patient with classic symptoms of hyperglycemia or hyperglycemic crisis, a random glucose >/= 200 mg/dl is diagnostic for diabetes. In the absence of unequivocal hyperglycemia, results should be confirmed by repeat testing. The classification and Diagnosis of Diabetes Diabetes Care 202; 46: S19-S40. Current interpretive data was last revised 2022. Calcium 9.6 8.5 - 10.3 mg/dL [facility] ([place]) Bilirubin, total 0.3 0.1 - 1.2 mg/dL [facility] ([place]) Protein, pl 7.6 6.5 - 8.5 g/dL [facility] ([place]) Albumin 4.7 3.5 - 5.0 g/dL [facility] ([place]) Alk phos 79 40 - 130 Units/L [facility] ([place]) ALT 16 7 - 55 Units/L [facility] ([place]) AST 15 10 - 50 Units/L [facility] ([place]) Blood 09/30/2024 1:37 PM CDT 09/30/2024 2:02 PM CDT us Ralph Chávez MD LAB BLOOD ORDERABLES Billie sena Result [facility] Department [place] [address] * Colonoscopy (07/22/2024 9:23 AM [employer]) Anatomical Region Laterality Modality Other Narrative Procedure Note Monik Diehl MD - 07/22/2024 9:23 AM CST [facility] Patient Name: Christian Bella Procedure Date: 07/22/2024 9:23 AM Date of : 1975 Admit Type: Outpatient Age: 48 Gender: Male Attending MD: Monik Diehl M.D. Room: [facility] 1 Note Status: Finalized Patient Profile: This is a 48 year old male. History of polyps. No family history of colon cancer Procedure: Colonoscopy Indications: High risk colon cancer surveillance: Personalhistory of colonic polyps, Last colonoscopy: 2020 Referring MD: Ralph Chávez M.D. Providers: Monik Diehl M.D. Impression: - Two 5 to 6 mm polyps in the ascending colon,removed with a cold snare. Resected and retrieved. - Two 2 to 3 mm polyps in the descending colon, removed with a cold biopsy forceps. Resected and retrieved. - Four 5 to 10 mm polyps in the sigmoid colon,removed with a cold snare. Resected and retrieved. - One 16 mm polyp in the rectum, removed with a hot snare. Resected and retrieved. Clip (MRconditional) was placed. Clip solderer: Cinepapaya. - Diverticulosis in the sigmoid colon - Internal hemorrhoids. Recommendation: - Await pathology results. - Repeat colonoscopy in 2 years for surveillance. - Continue present medications. Medicines: Monitored Anesthesia Care Complications: No immediate complications. Estimated Blood Loss: Estimated blood loss: none. Procedure: Pre-Anesthesia Assessment: - Prior to the procedure, a History and Physicalwas performed, and patient medications and allergieswere reviewed. The patient's tolerance of previous anesthesia was also reviewed. The risks andbenefits of the procedure and the sedation options and risks were discussed with the patient. All questions were answered, and informed consent was obtained. Prior Anticoagulants: The patient has taken noanticoagulant or antiplatelet agents. ASA Grade Assessment: Per anesthesia note and evaluation. After reviewing the risks and benefits, the patient was deemed in satisfactory condition to undergo the procedure. - Prior to the procedure, a History and Physicalwas performed, and patient medications and allergieswere reviewed. The patient's tolerance of previous anesthesia was also reviewed. The risks andbenefits of the procedure and the sedation options and risks were discussed with the patient. All questions were answered, and informed consent was obtained. Prior Anticoagulants: The patient has taken noanticoagulant or antiplatelet agents. ASA Grade Assessment: Per anesthesia note and evaluation. After reviewing the risks and benefits, the patient was deemed in satisfactory condition to undergo the procedure. The benefits, risks and alternatives of theprocedure and sedation were discussed and informed consentwas obtained. All questions were answered. Please referto the signed informed consent document in the medical record. The bowel preparation used was Miralax and bisacodyl tablets via split dose instruction. The scope was passed under direct vision. The Pediatric Colonoscope [id number] was introducedthrough the anus and advanced to the the cecum, identifiedby appendiceal orifice and ileocecal valve. Thequality of the bowel preparation was good. Bowel prep was administered using a split dose. Findings: The perianal and digital rectal examinations were normal. The cecum appeared normal. Two sessile polyps were found in the ascending colon. The polyps were5 to 6 mm in size. These polyps were removed with a cold snare.Resection and retrieval were complete. Two sessile polyps were found in the descending colon. The polypswere 2 to 3 mm in size. These polyps were removed with a cold biopsyforceps. Resection and retrieval were complete. Four sessile polyps were found in the sigmoid colon. The polyps were5 to 10 mm in size. These polyps were removed with a cold snare.Resection and retrieval were complete. [id number] diverticulosis noted in the sigmoid colon. A 16 mm polyp was found in the rectum. The polyp was sessile. Thepolyp was removed with a hot snare. Resection and retrieval were complete.To prevent bleeding after the polypectomy, one hemostatic clip was successfully placed (MR conditional). Clip solderer: Cinepapaya. There was no bleeding at the end of the procedure. Internal hemorrhoids were found during retroflexion. The hemorrhoids were small. Electronically signed by Monik Diehl M.D. Monik Diehl M.D. 07/22/2024 12:00:02 PM Number of Addenda: 0 Note Initiated On: 07/22/2024 9:23 AM Procedure Code(s): --- Professional --- 06211, Colonoscopy, flexible; with removal of tumor(s), polyp(s), or other lesion(s) by snare technique 01820, 59, Colonoscopy, flexible; with biopsy, single or multiple Diagnosis Code(s): --- Professional --- Z86.010, Personal history of colonic polyps K64.8, Other hemorrhoids D12.4, Benign neoplasm of descending colon D12.5, Benign neoplasm of sigmoid colon D12.2, Benign neoplasm of ascending colon D12.8, Benign neoplasm of rectum CPT copyright 2020 [employer]. All rights reserved. The codes documented in this report are preliminary and upon indirect sales representative reviewmay be revised to meet current compliance requirements. Recognized by the [employer] for promoting quality in endoscopy Monik Diehl MD ENDOSCOPY PROCEDURES Final Result from Last 3 Months or Most Recently Relevant to Health Maintenance Insurance MEDICARE [place] CIGNA MEDICARE ADV IDPA AETNA MEDICARE GOLD Advance Directives For more information, please contact: [phone] * Full Code (Latest Code Status on File) Date Activated Date Inactivated Comments 07/22/2024 9:25 AM 07/22/2024 4:45 PM * Full Code Date Activated Date Inactivated Comments 07/22/2024 9:25 AM 07/22/2024 9:25 AM * Full Code Date Activated Date Inactivated Comments 01/30/2018 4:05 PM 01/30/2018 6:40 PM * Full Code Date Activated Date Inactivated Comments 01/30/2018 4:05 PM 01/30/2018 4:05 PM Care Teams Steam Tank Operator Relationship Specialty Start Date End Date Ralph Chávez MD PCP - General Family Practice 04/20/24
--- OUTSIDE RECORDS SUMMARY | 2024-11-04 13:19 | XMS_ITS | Referral Summary ---
Author Organization [facility] Healthcare Address [address] [place] [address] Care Team Providers Care Clinical Documentation Specialist Name Role Phone Ralph Chávez MD Primary Care Provider [phone] Encounters Date Type Department Care Team Description 09/30/2024 1:30 PM CDT Lab [address] [address] from Last 3 Months Allergies No known active allergies Medications VENTOLIN [...] 10/23/2023 Cellulitis of left little finger 08/31/2020 Social History Tobacco Use Types Packs/Day Years [...] on file Legal Sex Male 12:00 PM CHANNEL SUPERVISOR Gender Identity Not on file Sexual Orientation Not on file Last Filed Vital Signs Vital Sign Reading Time Taken Comments Blood Pressure 151/87 07/22/2024 12:13 PM CHANNEL SUPERVISOR Pulse 55 07/22/2024 12:13 PM CHANNEL SUPERVISOR Temperature 36.7 C (98 F) 07/22/2024 12:13 PM CHANNEL SUPERVISOR Respiratory Rate 18 07/22/2024 12:13 PM CHANNEL SUPERVISOR Oxygen Saturation 100% 07/22/2024 12:13 PM CHANNEL SUPERVISOR Inhaled Oxygen Concentration - - Weight 77.6 kg (171 lb) 07/22/2024 9:33 AM CHANNEL SUPERVISOR Height 188 cm (6' 2 ) 07/22/2024 9:33 AM CHANNEL SUPERVISOR Body Mass Index 21.96 07/22/2024 9:33 AM CHANNEL SUPERVISOR Plan of Treatment Upcoming Encounters Date Type Department Care Team (Latest Contact Info) Description 07/27/2025 11:00 AM CHANNEL SUPERVISOR Hospital Encounter [facility] 1 [place] [address] Monik Diehl MD [address] [place] [address] [address] [place] [address] 07/27/2025 11:00 AM CHANNEL SUPERVISOR - 07/27/2025 11:35 AM CHANNEL SUPERVISOR Surgery [facility] 1 [place] [address] Monik Diehl MD [address] [place] [address] [address] [place] [address] ESOPHAGOGASTRODUODENOSCOPY Scheduled Procedures Name Priority Associated Diagnoses Date/Ti me ESOPHAGOGASTRODUODENOSCOPY Dominguez's esophagus with dysplasia Acute gastritis, presence of bleeding unspecified, unspecified gastritis type 07/27/2025 11:00 AM CHANNEL SUPERVISOR Procedures Procedure Name Priority Date/Time Associated Diagnosis Comments EGFR Routine 09/30/2024 1:37 PM CDT CBC WITHOUT DIFFERENTIAL Routine 09/30/2024 1:37 PM CDT TSH Routine 09/30/2024 1:37 PM CDT HEMOGLOBIN A1C Routine 09/30/2024 1:37 PM CDT COMPREHENSIVE METABOLIC PANEL Routine 09/30/2024 1:37 PM CDT COLONOSCOPY 07/22/2024 9:23 AM CHANNEL SUPERVISOR from Last 3 Months or Most Recently [...] LAB BLOOD ORDERABLES Billie sena Result [facility] (RYAN) 1 [facility] Department [place] [address] * (ABNORMAL) CBC without differential (09/30/2024 1:37 [...] 1:37 PM CDT 09/30/2024 2:02 PM CDT Ralph Chávez MD LAB BLOOD ORDERABLES Billie l Result [facility]TE ValenzuelaTAHOMA) [address] [facility] [email or web address] [facility] [place] [address] * TSH (09/30/2024 1:37 PM CDT) Thyroid Stimulating Hormone 0.87 0.30 - 4.20 mcIUnit/mL Blood 09/30/2024 1:37 PM CDT 09/30/2024 2:02 PM CDT Ralph Chávez MD LAB BLOOD ORDERABLES Billie l Result Performing Organization Address [facility] de Phone Number [facility] CARMONA ([place]) [address] [facility] [email or web address] ([employer] [place] [address] * Hemoglobin A1c (09/30/2024 1:37 PM CDT) Pathologist [facility] Hgb A1C 5.1 4.0 - 5.6 % Estimated Average Glucose 100 mg/dL [facility] MATHEW ([place]) Comment: The ADA recommends reporting an estimated Average Glucose (eAG) with all Hemoglobin A1c results using the equation derived from a study of 507 normal and diabetic adults. Minority populations were underrepresented and children were not included. (Diabetes Care 31:1324-3336, 2008). The eAG is not equivalent to a fasting glucose. Blood 09/30/2024 1:37 PM CDT 09/30/2024 2:02 PM CDT us Ralph Chávez MD LAB BLOOD ORDERABLES Billie l Result Performing Organization Address City[facility]/ZIP Co de Phone Number [facility] CARMONA ([place]) [address] [facility] [email or web address] ([employer] [place] [address] * Comprehensive metabolic panel (09/30/2024 1:37 PM CDT) Sodium 138 135 - 145 mmol/L Potassium, pl 4.2 3.3 - 4.9 mmol/L [facility] (RAYN) Chloride 102 97 - 110 mmol/L [facility] ([facility]) CO2 25 22 - 32 mmol/L [facility] ([place]) Anion gap 11 2 - 15 mmol/L [facility] ([place]) BUN 13 6 - 25 mg/dL [facility] ([place]) Creatinine 1.10 0.80 - 1.30 mg/dL [facility] ([place]AN) Glucose 81 70 - 199 mg/dL [facility] ([place]AN) Comment: Interpretive Data Fasting glucose >/= [...] classification and Diagnosis of Diabetes Diabetes Care 2021; 46: S19-S40. Current interpretive data was last [...] MD LAB BLOOD ORDERABLES Billie sena Result [facility] (RYAN) 1 [facility] Department [place] [address] * Colonoscopy (07/22/2024 9:23 AM CHANNEL SUPERVISOR) Anatomical Region Laterality Modality Other Narrative Procedure Note Monik Diehl MD - 07/22/2024 9:23 AM CST [facility] Patient Name: Christian Bella Procedure Date: 07/22/2024 9:23 AM Date of : 1975 Admit Type: Outpatient Age: 48 Gender: Male Attending MD: Monik Diehl M.D. Room: [facility] ENDOSCOPY ROOM 1 Note Status: Finalized Patient [...] and retrieved. Clip (MRconditional) was placed. Clip retort firer: Wasabi 3D. - Diverticulosis in the sigmoid colon - [...] under direct vision. The Pediatric Colonoscope [id number] was introducedthrough the anus and advanced to [...] a cold snare.Resection and retrieval were complete. Jewl-rh-[id number] diverticulosis noted in the sigmoid colon. A 16 mm polyp was found in the rectum. The polyp was sessile. Thepolyp was removed with a hot snare. Resection and retrieval were complete.To prevent bleeding after the polypectomy, one hemostatic clip was successfully placed (MR conditional). Clip retort firer: Wasabi 3D. There was no bleeding at the end of the procedure. Internal hemorrhoids were found during retroflexion. The hemorrhoids were small. Electronically signed by Monik Diehl M.D. Monik Diehl M.D. 07/22/2024 12:00:02 PM Number of Addenda: 0 Note Initiated On: 07/22/2024 9:23 AM Procedure Code(s): --- Professional --- 83899, Colonoscopy, flexible; with removal of tumor(s), polyp(s), or other lesion(s) by snare technique 43093, 59, Colonoscopy, flexible; with biopsy, single or multiple Diagnosis Code(s): --- Professional --- Z86.010, Personal history of colonic polyps K64.8, Other hemorrhoids D12.4, Benign neoplasm of descending colon D12.5, Benign neoplasm of sigmoid colon D12.2, Benign neoplasm of ascending colon D12.8, Benign neoplasm of rectum CPT copyright 2020 [employer]. All rights reserved. The codes documented in this report are preliminary and upon drawing box tender reviewmay be revised to meet current compliance requirements. Recognized by the [employer] for promoting quality in endoscopy Monik Diehl MD ENDOSCOPY PROCEDURES Final Result from Last 3 Months or Most Recently Relevant to Health Maintenance Insurance MEDICARE IDPA CIGNA MEDICARE ADV [facility] OTHER Address: ATTN CLAIMS [address] [place] [address] [facility] AET[employer] MEDICARE GOLD Advance Directives For more information, please contact: [phone] * Full Code (Latest Code Status on File) Date Activated Date Inactivated Comments 07/22/2024 9:25 AM 07/22/2024 4:45 PM * Full Code Date Activated Date Inactivated Comments 07/22/2024 9:25 AM 07/22/2024 9:25 AM * Full Code Date Activated Date Inactivated Comments 01/30/2018 4:05 PM 01/30/2018 6:40 PM * Full Code Date Activated Date Inactivated Comments 01/30/2018 4:05 PM 01/30/2018 4:05 PM Care Teams Clinical Documentation Specialist Relationship Specialty Start Date End Date Ralph Chávez MD PCP - General Family Practice 04/20/24
== END 2024-11-04 12:08 | disposition home or self-care (01) ==
LOC: ANHBWCAUD 12:08
PROVIDERS: PCP Family Medicine; Visit Provider Family Medicine
DX: H90.71 Mixed conductive and sensorineural hearing loss, unilateral, right ear, with unrestricted hearing on the contralateral side (principal); H90.42 Sensorineural hearing loss, unilateral, left ear, with unrestricted hearing on the contralateral side
CPT/HCPCS: 92557; 92567

== ENCOUNTER 2024-12-05 12:11 | Emergency (ER) | payer MEDICARE, MEDICAID, SELFPAY ==
--- OUTSIDE RECORDS SUMMARY | 2024-12-05 12:15 | XMS_ITS | Encounter Summary ---
Author Organization [facility] Address [address] [place] [address] Phone Care Team Providers Care Compensation Specialist Name Role Phone Nael, Serafin Leticia PEÑA Primary Care Provider [phone] Encounter Details Date Type Department Care Team (Latest Contact Info) Description 10/31/2023 Transcribe Orders [facility] Services 1 [place] [address] Ralph Chávez MD [address] [place] [address] Encounter for screening for malignant neoplasm [...] 126 <200 mg/dL 11/11/2023 1:24 PM CDT [facility] TRIGLYCERIDES 52 <150 mg/dL 11/11/2023 1:24 PM CDT [facility] HDL CHOLESTEROL 57 >40 mg/dL 1:24 PM CDT [facility] LDL 59 <130 mg/dL 11/11/2023 1:24 PM CDT [facility] VLDL 10 10 - 50 mg/dL 11/11/2023 1:24 PM CDT [facility] CHOL/HDL RATIO 2.2 0.0 - 4.4 11/11/2023 1:24 PM CDT [facility] NON-HDL CHOLESTEROL 69 <130 mg/dL 11/11/2023 1:24 PM CDT [facility] IS THE PATIENT REQUIRED TO BE FASTING? Yes 11/11/2023 1:24 PM CDT [facility] HAS THE PATIENT BEEN FASTING? Yes 11/11/2023 1:24 PM CDT [facility] Blood VENOUS STRUCTURE / Unknown Venipuncture / Unknown 11/11/2023 12:30 PM CDT 11/11/2023 12:56 PM CDT us Ralph Chávez MD CHEMISTRY ORDERABLES Final Resu lt [facility] #1 [place] [address] * PSA SCREEN (11/11/2023 12:30 PM CDT) PSA SCREEN, TOTAL 0.46 <4.00 ng/mL 11/11/2023 1:42 PM CDT [facility] Blood VENOUS STRUCTURE / Unknown Venipuncture / Unknown 11/11/2023 12:30 PM CDT 11/11/2023 12:57 PM CDT Narrative [facility] - 11/11/2023 1:42 PM CDT The ALINITY Total PSA assay is a Chemiluminescent Microparticle Immunoassay (CMIA) for the quantitative determination of total PSA (both free PSA and PSA complexed to [id number]) in human serum. Total PSA values obtained with different assay methods, including Lewis PSA assays, cannot be used interchangeably. us Ralph Chávez MD CHEMISTRY ORDERABLES Final Resu lt [facility] [address] [place] [address] * (ABNORMAL) CMP (COMPREHENSIVE METABOLIC PANEL) (11/11/2023 12:30 PM CDT) SODIUM 136 136 - 145 mmol/L 11/11/2023 1:24 PM CDT [facility] POTASSIUM 3.8 3.5 - 5.1 mmol/L 11/11/2023 1:24 PM CDT [facility] CHLORIDE 102 98 - 107 mmol/L 11/11/2023 1:24 PM CDT [facility] CO2, VENOUS 26 22 - 30 mmol/L 11/11/2023 1:24 PM CDT [facility] ANION GAP 11.8 <18.0 mmol/L 11/11/2023 1:24 PM CDT [facility] GLUCOSE 128(H) 70 - 99 mg/dL 11/11/2023 1:24 PM CDT [facility] BUN 7(L) 8 - 26 mg/dL 11/11/2023 1:24 PM CDT [facility] CREATININE, BLOOD 0.98 0.70 - 1.30 mg/dL 11/11/2023 1:24 PM CDT [facility] BUN/CREATININE RATIO 7(L) 12 - 20 ratio 11/11/2023 1:24 PM CDT [facility] TOTAL PROTEIN 7.2 6.3 - 8.2 g/dL 11/11/2023 1:24 PM CDT [facility] ALBUMIN 4.3 3.5 - 5.0 g/dL 11/11/2023 1:24 PM CDT [facility] A/G RATIO 1.5 1.0 - 2.2 11/11/2023 1:24 PM CDT [facility] CALCIUM 9.6 8.7 - 10.5 mg/dL 11/11/2023 1:24 PM CDT [facility] T BILI 0.4 0.2 - 1.2 mg/dL 11/11/2023 1:24 PM CDT [facility] SGOT (AST) 23 5 - 34 U/L 11/11/2023 1:24 PM CDT [facility] SGPT (ALT) 21 0 - 55 U/L 11/11/2023 1:24 PM CDT [facility] ALKALINE PHOSPHATASE 63 40 - 150 U/L 11/11/2023 1:24 PM CDT [facility] IS THE PATIENT REQUIRED TO BE FASTING? No 11/11/2023 1:24 PM CDT [facility] GFR, ESTIMATED >60 >=60 11/11/2023 1:24 PM CDT [facility] Comment: Creatinine Clearance is the preferred criteria for selecting drug dose adjustments in renally impaired patients. The GFR is provided as additional pertinent clinical information. GFR is reported in mL/min/1.73 sq m. Calculation based on the Chronic Kidney Disease Epidemiology Collaboration (CKD- EPI) equation refit without adjustment for race. GFR, EST. >60 >=60 024 1:24 PM CDT [facility] GFR, EST. NONAFRICAN >60 >=60 11/11/2023 1:24 PM CDT [facility] Blood VENOUS STRUCTURE / Unknown Venipuncture / Unknown 11/11/2023 12:30 PM CDT 11/11/2023 12:56 PM CDT us Ralph Chávez MD CHEMISTRY ORDERABLES Final Resu lt [facility] [address] [place] [address] * (ABNORMAL) COMPLETE BLOOD COUNT (CBC) WITHOUT DIFF (11/11/2023 12:30 PM CDT) WBC 4.59 4.00 - 12.00 10(3)/mcL 11/11/2023 1:03 PM CDT [facility] RBC 4.14(L) 4.40 - 5.80 10(6)/mcL 11/11/2023 1:03 PM CDT [facility] HEMOGLOBIN (HGB) 14.5 13.0 - 16.5 g/dL 11/11/2023 1:03 PM CDT [facility] HEMATOCRIT (HCT) 39.9 38.0 - 50.0 % 11/11/2023 1:03 PM CDT [facility] MCV 96.4(H) 82.0 - 96.0 fL 11/11/2023 1:03 PM CDT [facility] MCH 35.0(H) 26.0 - 32.0 pg 11/11/2023 1:03 PM CDT [facility] MCHC 36.3(H) 31.0 - 36.0 g/dL 11/11/2023 1:03 PM CDT [facility] PLATELET COUNT 321 140 - 440 10(3)/mcL 11/11/2023 1:03 PM CDT [facility] RDW 12.2 11.8 - 15.5 % 11/11/2023 1:03 PM CDT [facility] MPV 8.6 8.0 - 12.6 fL 11/11/2023 1:03 PM CDT [facility] Blood VENOUS STRUCTURE / Unknown Venipuncture / Unknown 11/11/2023 12:30 PM CDT 11/11/2023 12:57 PM CDT us Ralph Chávez MD HEMATOLOGY ORDERABLES Final Res ult [facility] [place] [address] documented in this encounter Visit Diagnoses Diagnosis [...] pain documented in this encounter Care Teams Compensation Specialist Relationship Specialty Start Date End Date Serafin Nayak DO [address] [address] PCP - General Internal Medicine 04/13/20 documented as of this encounter
--- OUTSIDE RECORDS SUMMARY | 2024-12-05 12:15 | XMS_ITS | Clinical Summary ---
Author Organization [facility] Address [address], [address] [address] Phone Care Team Providers Care Indirect Fire Infantryman Name Role Phone Serafin Nayak DO Primary Care Provider [phone] Allergies No known active allergies Medications albuterol [...] 9:00 AM CDT Height 185.4 cm (6' 1) 03/07/2021 9:00 AM CDT Body Mass Index [...] A IGM ANTIBODY NON DETECTED NON DETECTED [facility] [id number] A 04/13/2020 8:53 PM CDT [facility] Comment: IGM Antibodies to HAV not detected. Does not exclude early acute or recovered HAV infection. HEP B CORE AB (IGM) NON DETECTED NON DETECTED [facility] [id number] A 04/13/2020 8:53 PM CDT [facility] Comment:IGM anti-HBC not det ected. Does not exclude the possibility of exposure to or infection with HBV. HEPATITIS B SURFACE ANTIGEN NON DETECTED NON DETECTED [facility] [id number] B 04/13/2020 8:53 PM CDT [facility] Comment:A nonreactive test r esult does not exclude the possibility of exposure to or infection with Hepatitis B virus. A nonreactive test result in individuals with prior exposure to hepatitis B may be due to antigen levels below the detection limit of this assay or lack of antigen reactivity to the antibodies in this assay. hepatitis C antibody 0.11 <1 S/[facility] [id number] B 04/13/2020 8:53 PM CDT [facility] Comment: Signal/Cutoff ratio < 0.79 is Nondetected Signal/Cutoff ratio 0.80-0.99 is Grayzone Signal/Cutoff ratio > 0.99 is Detected Supplemental assays are recommended if signal/cutoff ratio is >/=1.00. Signal/cutoff ratio result >/= 5.00 is 97% predictive of positivity for recombinant immunoblot assay (RIBA) and will be reported to the [place] Department of Public Health as required. Blood Venipuncture / Unknown 04/13/2020 10:48 AM CDT 04/13/2020 10:48 AM CDT us Denise Preciado PAC HEMATOLOGY ORDERABLES Fin al Result [facility] [address] [place] [address], * COLONOSCOPY (05/20/2013) Monik Diehl MD PROCEDURE/MINOR SURGICAL OR DERABLES Final Result from Last 3 Months or Most Recently Relevant to Health Maintenance Insurance MEDICAID [place] MEDICARE C CIGNA Care Teams Indirect Fire Infantryman Relationship Specialty Start Date End Date Serafin Nayak DO [address] [address] PCP - General Internal Medicine 04/13/20
--- OUTSIDE RECORDS SUMMARY | 2024-12-05 12:15 | XMS_ITS | Encounter Summary ---
Author Organization [facility] Address [address] [place] [address] Phone Care Team Providers Care Director Of Archives Name Role Phone Serafin Nayak Leticia PEÑA Primary Care Provider [phone] Reason for Visit * Reason Onset Date Comments Results 10/03/2020 Results review Encounter Details Date Type Department Care Team (Late st Contact Info) Description 10/03/2020 Telephone [facility] - [facility]ology - [place] [address] [place] [address] Link Gunn DO [address] [place] [address] [address] [place], [place] [id number] Results (Results review) Social History Tobacco Use [...] on filedocumented in this encounter Care Teams Director Of Archives Relationship Specialty Start Date End Date Serafin Nayak DO [address] [id number] PCP - General Internal Medicine 04/13/20 documented as of this encounter
[2024-12-05 12:18] VITALS: BP 123/101; PULSE 103; RESP 20; TEMP 37.2; O2SAT 98
--- NOTE | 2024-12-05 12:32 | ED.EAR ---
HPI - Ear Problem General Chief complaint: Ear Stated complaint: ear/jaw pain Time Seen by Provider: 12/05/24 12:32 Source: patient, RN notes reviewed and old records reviewed Mode of arrival: ambulatory Limitations: no limitations History of Present Illness HPI Narrative: 49 year old male accompanied by mother with complaints of knot below his left ear for about a week states that area is painful. Patient reports that he has been taking some Ibuprofen for his discomfort. He states no known fevers, chills or sweats, denies any difficulty with his swallowing or with his breathing.Patient does have poor dentition with numerous cavities noted and broken teeth., no trismus noted. MD Complaint: other (swelling to posterior left jaw area with discomfort) Duration: constant Severity: moderate Discharge from ear: Reports no Treatment prior to arrival: other (Ibuprofen) Related Data Home Medications ?Medication ?Instructions ?Recorded ?Confirmed ?Last Taken ?Type brimonidine 0.2 % eye drops 1 drp RIGHT EYE Q8H 12/27/22 Unknown History famotidine 40 mg tablet mg 12/05/24 Unknown History Allergies Allergy/AdvReac Type Severity Reaction Status Date / Time pseudoephedrine AdvReac Severe HYPERACTIVI Verified 03/24/24 15:26 TY Review of Systems Review of Systems: CONSTITUTIONAL: Denies malaise, chills, sweats, or fever. EYES: Denies visual changes, redness, or discharge. ENT: Reports rhinorrhea, congestion, sinus pain, left otalgia, swelling to left posterior jaw region with pain, reports no sore throat. CARDIOVASCULAR: Denies chest pain, palpitations, or edema. RESPIRATORY: Reports cough.? Denies dyspnea. GASTROINTESTINAL: Denies abdominal pain, nausea, vomiting, diarrhea SKIN: Denies rash or itching. MUSCULOSKELETAL: Denies myalgia. NEUROLOGIC: Denies headache. All systems reviewed & are unremarkable except as noted in HPI and below PMFSH Past Medical History Medical History Screening for lipid disorders Bilateral knee pain Anxiety Dominguez's esophagus with dysplasia Bipolar disorder, unspecified Cannabis dependence, uncomplicated Gastroesophageal reflux disease History of traumatic brain injury Nicotine dependence, unspecified, uncomplicated Retinal detachment Vision changes Blind in right eye Family History Family History Mother Family history of transient ischemic attacks Family history of lupus erythematosus Patient's mother is Sibling Asthma Father Patient's father is in good health Other Diabetes mellitus Family history of chronic obstructive pulmonary disease Family history of malignant neoplasm of breast in first degree relative Hypertension Malignant neoplasm of prostate Social History Social History Smoking packs per day: 1 Smoking cigarettes per day: 20.0 Years smoked: 20 Smoking pack-years: 20.00 Smoking status: Current every day smoker Tobacco type: cigarettes Second hand tobacco smoke exposure: Yes Alcohol intake: current Drinks per week: 10 Alcohol use details: social Substance use: current Substance use type: marijuana Other substance usage details: daily Lack of Transportation: No Lack of Food: Sometimes True Current Housing: I Have Housing Concerned About Future Housing: No Difficulty Paying Gas/Electric Bills: YES Difficulty Paying for Meds: No Currently Unemployed: Decline to Answer Education: Grade School Difficulty w/ Childcare or Family Care: No Living arrangements: with family Spiritual care concerns: No Comments At time of signature, agree with nursing past medical, surgical, social and family history. There is no relevant family history pertinent to the presenting complaint Exam Narrative: GENERAL: Well-appearing, well-nourished, and in no acute distress. HEAD: Normocephalic EYES: PERRLA, conjunctivae clear ENT: Nares clear, turbinates edematous and erythematous, clear discharge. Mucous membranes moist. TM pearly landry with dull light reflex bilaterally; no tragal tenderness. Oropharynx erythematous without lesions. Tonsils not enlarged and without exudate, no drooling, no hoarseness, no trismus, uvula midline.Swelling along left parotid gland with tenderness on palpation no trismus or Zoltan Angina noted, has poor dentition also no obvious abscess. NECK: Supple. No lymphadenopathy CHEST: Clear to auscultation, breath sounds equal. No wheezing, rhonchi, rales, or stridor. No respiratory distress, speaks in full sentences.SAO2 98% on room air, dry cough at times HEART: Regular rate and rhythm. No murmur heard. SKIN: Warm, dry, no rash. NEURO: Alert and oriented x3. has had traumatic brain injury in past PSYCH: Normal mood and affect Course Course Emergency Course: Patient is aware of diagnosis, understands and agrees to treatment plan.? Anticipatory guidance given.? Patient agrees to follow-up as directed and is aware of reasons to seek care at the emergency department. Portions of this record may have been created with voice recognition software Level of Care: Express Care Visit Vital Signs Vital signs: Vital Signs Temperature 37.2 C 12/05/24 12:18 Pulse Rate 103 H 12/05/24 12:18 Respiratory Rate 20 12/05/24 12:18 Blood Pressure 123/101 H 12/05/24 12:18 Pulse Oximetry 98 12/05/24 12:18 Oxygen Delivery Room Air 12/05/24 12:18 Temperature 37.2 C 12/05/24 12:18 Pulse Rate 103 H 12/05/24 12:18 Respiratory Rate 20 12/05/24 12:18 Blood Pressure 126/88 12/05/24 12:56 Pulse Oximetry 98 12/05/24 12:18 Oxygen Delivery Room Air 12/05/24 12:18 Reviewed Medical Decision Making Differential Diagnosis Differential Diagnosis: parotid gland swelling left. parotid gland obstruction or stone, pain to left posterior jaw, Medical Records Medical records reviewed: Yes I reviewed the external patient's medical records. Vital Signs Vital Signs: Vital Signs Temperature 37.2 C 12/05/24 12:18 Pulse Rate 103 H 12/05/24 12:18 Respiratory Rate 20 12/05/24 12:18 Blood Pressure 123/101 H 12/05/24 12:18 Pulse Oximetry 98 12/05/24 12:18 Oxygen Delivery Room Air 12/05/24 12:18 Temperature 37.2 C 12/05/24 12:18 Pulse Rate 103 H 12/05/24 12:18 Respiratory Rate 20 12/05/24 12:18 Blood Pressure 126/88 12/05/24 12:56 Pulse Oximetry 98 12/05/24 12:18 Oxygen Delivery Room Air 12/05/24 12:18 reviewed Critical Care Time Critical Care Time Critical Care Time: No Discharge Plan Discharge Clinical Impression: Swelling of left parotid gland Patient Disposition: Home Condition: Stable Instructions: Antibiotic Form, Parotid Duct Obstruction (ED) Additional Instructions: Increase fluids especially juices and water [id number] cough and cold medicine of your choice for your symptoms Tylenol or Ibuprofen for any pain or fever heat to the face 20-30 minutes 4-6 times a day for pain Salt water gargles, throat lozenges or throat sprays as desired Antibiotic as directed--finish the medication Suck on lemon drops or hard candy Follow up with your PCP in 7-10 days for evaluation If your symptoms persist, change or worsen significantly before you can contact your personal physician then please, without delay, go to the emergency department for further evaluation. Follow-up with PCP in 7-10 days or sooner if needed Follow up with PCP soon in regards to your blood pressure which is elevated above threshold for referral. Blood pressure above 120/80 may indicate pre-hypertension. rechecked blood pressure 126/88 You need to follow up with dentist for examination numerous cavities and broken teeth noted. Patient Language: Israeli Prescriptions: New amoxicillin-pot clavulanate 875-125 mg tablet 1 tablet PO Q12H Qty: 20 0RF Rx Instructions: take with food recommend taking a probiotic while on this medication or eating Activa yogurt No Action famotidine 40 mg tablet brimonidine 0.2 % drops 1 drp RIGHT EYE Q8H Trelegy Ellipta 200-62.5-25 mcg blister with device See Rx Instructions .ROUTE .COMPLEX Qty: 60 5RF Dose Instruction: 1 INH INHALED DAILY Rx Instructions: 1 INH INHALED DAILY albuterol sulfate [Ventolin HFA] 90 mcg/actuation HFA aerosol inhaler 1 inh inhalation Q6H PRN (Reason: shortness of breath or wheezing) Qty: 8.5 6RF naloxone [Narcan] 4 mg/actuation spray,non-aerosol 4 mg intranasal Q3M PRN (Reason: opioid overdose) Qty: 2 0RF Rx Instructions: spray 1 dose into ONE nostril; alternate nostrils w each dose until help arrives sertraline [Zoloft] 25 mg tablet 25 mg PO .prn Qty: 30 0RF albuterol sulfate 2.5 mg /3 mL (0.083 %) solution for nebulization See Rx Instructions .ROUTE .COMPLEX Qty: 180 0RF Dose Instruction: INHALE CONTENTS OF ONE VIAL VIA NEBULIZER EVERY 4 TO 6 HOURS NEEDED Rx Instructions: INHALE CONTENTS OF ONE VIAL VIA NEBULIZER EVERY 4 TO 6 HOURS NEEDED fluticasone propionate [Flonase Allergy Relief] 50 mcg/actuation spray,suspension 2 spray intranasal DAILY Qty: 16 3RF Rx Instructions: administer into each nostril ibuprofen 600 mg tablet See Rx Instructions .ROUTE .COMPLEX Qty: 90 1RF Dose Instruction: TAKE ONE (1) TABLET BY MOUTH THREE (3) TIMES DAILY Rx Instructions: TAKE ONE (1) TABLET BY MOUTH THREE (3) TIMES DAILY trazodone 150 mg tablet See Rx Instructions .ROUTE .COMPLEX Qty: 180 1RF Dose Instruction: TAKE 2 TABLET BY MOUTH EVERY DAY Rx Instructions: TAKE 2 TABLET BY MOUTH EVERY DAY omeprazole 40 mg capsule,delayed release(DR/EC) 40 mg PO DAILY Qty: 30 5RF quetiapine 300 mg tablet See Rx Instructions .ROUTE .COMPLEX Qty: 60 4RF Dose Instruction: TAKE TWO (2) TABLETS BY MOUTH EVERY NIGHT AT BEDTIME Rx Instructions: TAKE TWO (2) TABLETS BY MOUTH EVERY NIGHT AT BEDTIME gabapentin 300 mg capsule See Rx Instructions .ROUTE .COMPLEX Qty: 60 1RF Dose Instruction: TAKE 2 CAPSULES BY MOUTH AT BEDTIME Rx Instructions: TAKE 2 CAPSULES BY MOUTH AT BEDTIME hydrocodone-acetaminophen 7.5-325 mg tablet 1 tablet PO Q8H PRN (Reason: pain) Qty: 80 0RF alprazolam 0.5 mg tablet 0.5 mg PO BID PRN (Reason: anxiety) Qty: 60 0RF Follow-up/Referrals: Ralph Chávez MD [Primary Care Provider] - Time of Disposition: 12:50 Quality [place] Coma Scale Eyes: Open Verbal: Oriented and Alert Motor: Follows Commands [place] Coma Total Score: 15
[2024-12-05 12:56] VITALS: BP 126/88
== END 2024-12-05 12:57 | disposition home or self-care (01) ==
PROVIDERS: Emergency Provider Registered Nurse; PCP Family Medicine
DX: R59.0 Localized enlarged lymph nodes (principal); F17.210 Nicotine dependence, cigarettes, uncomplicated
CPT/HCPCS: 99213; G0463